=== PATIENT | female | born 1950 | race Caucasian/White ===

== ENCOUNTER 2022-05-01 13:39 | Outpatient (CLI) | payer MEDICARE, SELFPAY ==
--- NOTE | ~2022-05-01 | XR_ITS ---
EXAMINATION: XR abdomen/kub 1V DATE: 05/01/2022 14:32 INDICATION: Right renal stone TECHNIQUE: A supine view of the abdomen on 2 radiographs was obtained. COMPARISON: None. FINDINGS: Moderate to large amount of stool scattered throughout the colon which along with some additional sca ttered bowel gas somewhat limits assessment for small renal stones. 8 x 4 mm stone as well as a 1-2 m m stone projecting over the lower pole of the right kidney. No other evident urolithiasis. There are couple oblong densities projecting over the left hemipelvis likely representing ingested material wit hin the fecal stream. Cholecystectomy clips in right upper quadrant. Suture line in the epigastric re gion. At L4-L5 anterior spinal fusion with plate and screw fixation. Bipolar type left hip hemiarthro plasty. IMPRESSION: 1. A couple likely renal stones projecting over the lower pole of the right kidney measuring 8 x 4 mm and 1-2 mm Reviewed, dictated and finalized at location A. IMPRESSION: 1. A couple likely renal stones projecting over the lower pole of the right kid bell measuring 8 x 4 mm and 1-2 mm
== END 2022-05-01 13:40 | disposition home or self-care (01) ==
PROVIDERS: PCP Internal Medicine; Visit Provider Urology
DX: N20.0 Calculus of kidney (principal)
CPT/HCPCS: 74018

== ENCOUNTER 2022-07-27 12:11 | Outpatient (CLI) | payer MEDICARE, SELFPAY ==
--- NOTE | 2022-07-27 12:40 | ECG_ITS ---
Measurements Intervals [place] Rate: 57 P: 29 SD: 165 QRS: -7 QRSD: 76 T: 24 QT: 403 QTc: 393 Interpretive Statements SINUS BRADYCARDIA BASELINE ARTIFACT VOLTAGE CRITERIA FOR LVH ABNORMAL ECG NO PREVIOUS ECG AVAILABLE FOR COMPARISON Electronically Signed On 07-27-2022 14:48:23 DIRECTOR OF MANAGED CARE by Jb Cárdenas M.D.
[2022-07-27 14:02] LABS: Anion Gap 6 mmol/L (8-16); Blood Urea Nitrogen 25 mg/dL (7-17); Calcium 8.6 mg/dL (8.4-10.2); Carbon Dioxide 24 mmol/L (22-30); Chloride 111 mmol/L (98-107); Estimated Glomerular Filt Rate > 60; Glucose 81 mg/dL (65-110); Potassium 4.9 mmol/L (3.4-5.0); Sodium 141 mmol/L (137-145)
[2022-07-27 14:14] LABS: Prothrombin Time 12.6 Seconds (11.1-14.7)
== END 2022-07-27 12:12 | disposition home or self-care (01) ==
LOC: ANHSURGERY 12:15
PROVIDERS: Anesthesiology; PCP Internal Medicine; Visit Provider Urology
DX: N20.0 Calculus of kidney (principal); E78.00 Pure hypercholesterolemia, unspecified; Z51.81 Encounter for therapeutic drug level monitoring
CPT/HCPCS: 36415; 80048; 85610; 85730; 87086; 87147; 87181; 87186; 93005

== ENCOUNTER 2022-10-20 13:26 | Outpatient (CLI) | payer MEDICARE, SELFPAY ==
--- NOTE | ~2022-10-20 | XR_ITS ---
XR abdomen/kub 1V 10/20/2022 13:45 Indication: Right renal stone Procedure: KUB Comparison: 05/01/2022 Findings: There are multiple radiodensities throughout the abdomen, likely bowel content. There are s mall calcifications overlying the lower pole of the right kidney, most likely renal stones. Lung base s unremarkable. Nonobstructive bowel gas pattern. Moderate colonic fecal loading. There is a left fem oral bipolar hemiarthroplasty. There are surgical fusion changes at L4-5. Impression: 1: Right nephrolithiasis. Reviewed, dictated and finalized at location L. TH SERVICES ADMINISTRATOR Impression: 1: Right nephrolithiasis.
== END 2022-10-20 13:27 | disposition home or self-care (01) ==
PROVIDERS: PCP Internal Medicine; Visit Provider Nurse Practitioner Adult Health
DX: N20.0 Calculus of kidney (principal)
CPT/HCPCS: 74018

== ENCOUNTER 2023-10-19 14:20 | Outpatient (CLI) | payer MEDICARE, SELFPAY ==
--- NOTE | ~2023-10-19 | XR_ITS ---
EXAM: XR abdomen/kub 1V DATE: 10/19/2023 14:42 HISTORY: RT RENAL STONE . COMPARISON: 10/20/2022. FINDINGS: Clear lung bases. Normal bowel gas pattern. No organomegaly. Cluster of calcifications pro jecting over the right lower renal pole, largest measuring up to 6 mm. Vascular calcifications. Diver ticular calcification. Osteopenia. Lumbar fusion hardware. Left femoral bipolar hemiarthroplasty. IMPRESSION: Stable right nephrolithiasis. Reviewed, dictated and finalized at location K. IAL EDUCATION INCLUSION TEACHER
== END 2023-10-19 14:21 | disposition home or self-care (01) ==
PROVIDERS: PCP Internal Medicine; Visit Provider Urology
DX: N20.0 Calculus of kidney (principal)
CPT/HCPCS: 74018

== ENCOUNTER 2024-07-05 00:12 | Day surgery (SDC) | payer MEDICARE, SELFPAY ==
[2024-06-22 14:16] VITALS: BMI 28.3
[2024-07-05 10:50] VITALS: BP 137/83; PULSE 98; RESP 18; TEMP 36.8; O2SAT 98; BMI 27.9
[2024-07-05] MEDS: LACTATED RINGERS 1,000 ML 150 ML IV CONT (11:15)
--- NOTE | 2024-07-05 12:12 | PM.IMHP ---
H&P: HPI History of Present Illness Date/Time: 07/05/24 12:12 Chief Complaint: History of colon polyps Narrative: The patient has a history of colonic polyps, the last colonoscopy was 5 years ago Review of Systems Review of Systems: All systems reviewed & are unremarkable except as noted in HPI and below PMFSH Social History Social History Smoking status: Never smoker Alcohol intake: current Drinks per week: 2 Alcohol use details: glass of wine occas Substance use: never Substance use type: does not use Living arrangements: with family Additional living arrangements comments: HUSB Spiritual care concerns: No Meds Home Medications and Allergies Home Medications Medication Instructions Recorded Confirmed Type atorvastatin 20 mg tablet 20 mg PO DAILY 05/14/22 07/05/24 History calcium 600 mg (as carbonate)-vit 1 tablet PO DAILY 05/14/22 07/05/24 History D3 20 mcg (800 unit) chewable tablet (Caltrate plus D) cholecalciferol (vitamin D3) 125 5,000 unit PO DAILY 05/14/22 07/05/24 History mcg (5,000 unit) tablet (Vitamin D3) cyanocobalamin (vitamin B-12) 1,000 mcg IM MONTHLY 05/14/22 07/05/24 History 1,000 mcg/mL injection solution furosemide 20 mg tablet 20 mg PO DAILY PRN Edema 05/14/22 07/05/24 History gabapentin 600 mg tablet 600 mg PO HS 05/14/22 07/05/24 History glucosamine-chondroitin 250 mg-200 1 tablet PO BID 05/14/22 07/05/24 History mg tablet (Osteo Bi-Flex) hydrocodone 10 mg-acetaminophen 1 tablet PO QID 05/14/22 07/05/24 History 325 mg tablet melatonin 10 mg tablet 10 mg PO HS 05/14/22 07/05/24 History meloxicam 7.5 mg tablet 7.5 mg PO DAILY 05/14/22 07/05/24 History omeprazole 20 mg capsule,delayed 20 mg PO HS 05/14/22 07/05/24 History release biotin 10,000 mcg capsule 10,000 mcg PO DAILY 07/20/22 07/05/24 History magnesium 250 mg tablet 250 mg PO DAILY 06/22/24 07/05/24 History Allergies Allergy/AdvReac Type Severity Reaction Status Date / Time Sulfa (Sulfonamide Allergy Rash Verified 06/22/24 14:12 Antibiotics) adhesive tape AdvReac Redness of Verified 06/22/24 14:12 Skin Vital Signs Vital Signs - 24 hr 07/05/24 10:50 Temperature 98.2 F Pulse Rate 98 Respiratory Rate 18 Blood Pressure 137/83 Pulse Oximetry 98 Oxygen Delivery Room Air Exam Const: General: cooperative and healthy appearing Resp: Effort & Inspection: normal respiratory effort and able to speak in complete sentences Auscultation: clear to auscultation bilaterally Cardio: Rate: regular rate Rhythm: regular rhythm GI: Inspection: normal to inspection GI Palp: No No hepatosplenomegaly present Auscultation: normal bowel sounds Rectal Exam: deferred Skin: General skin exam: normal color Psych: Appearance: grossly normal Mental Status: mental status grossly normal Assessment and Plan Assessment and plan (1) History of colonic polyps: Code(s): Z86.0100 - Personal history of colon polyps, unspecified Status: Acute Assessment and Plan: The patient is deemed a good candidate for the procedure. Consent signed. Will proceed.
--- NOTE | 2024-07-05 12:14 | P.PNAN_ITS ---
Anes - Initial Pre Proc Eval Procedure: Operation Date: 07/05/24 11:30 Proposed Procedures p Colonoscopy - Mariano Nuñez MD Date/Time: 07/05/24 12:14 Surgeon: Mariano Nuñez MD Pre Op Diagnosis: hemorrhoidal skin tags Patient Data Age: 73 Gender: F Height: 1.63 m Weight: 73.9 kg Last Vital Signs Temp 36.8 C 07/05/24 10:50 Pulse 98 07/05/24 10:50 Resp 18 07/05/24 10:50 BP 137/83 07/05/24 10:50 Pulse Ox 98 07/05/24 10:50 O2 Del Method Room Air 07/05/24 10:50 Allergies Allergy/AdvReac Type Severity Reaction Status Date / Time Sulfa (Sulfonamide Allergy Rash Verified 06/22/24 14:12 Antibiotics) adhesive tape AdvReac Redness of Verified 06/22/24 14:12 Skin Home Medications Medication Instructions Recorded Confirmed Type atorvastatin 20 mg tablet 20 mg PO DAILY 05/14/22 07/05/24 History calcium 600 mg (as carbonate)-vit 1 tablet PO DAILY 05/14/22 07/05/24 History D3 20 mcg (800 unit) chewable tablet (Caltrate plus D) cholecalciferol (vitamin D3) 125 5,000 unit PO DAILY 05/14/22 07/05/24 History mcg (5,000 unit) tablet (Vitamin D3) cyanocobalamin (vitamin B-12) 1,000 mcg IM MONTHLY 05/14/22 07/05/24 History 1,000 mcg/mL injection solution furosemide 20 mg tablet 20 mg PO DAILY PRN Edema 05/14/22 07/05/24 History gabapentin 600 mg tablet 600 mg PO HS 05/14/22 07/05/24 History glucosamine-chondroitin 250 mg-200 1 tablet PO BID 05/14/22 07/05/24 History mg tablet (Osteo Bi-Flex) hydrocodone 10 mg-acetaminophen 1 tablet PO QID 05/14/22 07/05/24 History 325 mg tablet melatonin 10 mg tablet 10 mg PO HS 05/14/22 07/05/24 History meloxicam 7.5 mg tablet 7.5 mg PO DAILY 05/14/22 07/05/24 History omeprazole 20 mg capsule,delayed 20 mg PO HS 05/14/22 07/05/24 History release biotin 10,000 mcg capsule 10,000 mcg PO DAILY 07/20/22 07/05/24 History magnesium 250 mg tablet 250 mg PO DAILY 06/22/24 07/05/24 History Patient hx anesthesia problems: none Family hx anesthesia problems: none Results Review: All pre-operative results and documents have been reviewed as part of the pre- operative evaluation. [facility] Social History Social History Smoking status: Never smoker Alcohol intake: current Drinks per week: 2 Alcohol use details: glass of wine occas Substance use: never Substance use type: does not use Living arrangements: with family Additional living arrangements comments: HUSB Spiritual care concerns: No Anes - Eval Final PreProcedure Day of Procedure 07/05/24 12:14 Patient weight: overweight Heart: regular rate and rhythm Lungs: clear to auscultation Airway: Mallampati scale class III Neurological: alert and oriented Last oral intake: >/= 8 hours ASA classification: II Emergent: no Anesthetic plan: proceed Anesthesia type and monitoring: general GIVS and standard monitoring Results Review: All pre-operative results and documents have been reviewed as part of the pre- operative evaluation. Informed Consent: The patient's anesthetic plan and its attendant risks and benefits were discussed with the patient/family/POA. Questions were solicited and answers provided to the satisfaction of the patient/family/POA.
[2024-07-05 12:40] VITALS: BP 110/69; PULSE 87; RESP 20; O2SAT 99
[2024-07-05 12:50] VITALS: BP 131/88; PULSE 86; RESP 24; O2SAT 98
[2024-07-05 13:00] VITALS: BP 148/86; PULSE 88; RESP 22; O2SAT 96
== END 2024-07-05 13:10 | disposition home or self-care (01) ==
PROVIDERS: PCP Internal Medicine; Visit Provider Internal Medicine Gastroenterology
PROC: 0DJD8ZZ Inspection of Lower Intestinal Tract, Via Natural or Artificial Opening Endoscopic (ICD-10-PCS; CPT 45378; principal; 2024-07-05 11:30)
DX: Z12.11 Encounter for screening for malignant neoplasm of colon (principal); Z79.891 Long term (current) use of opiate analgesic; Z86.0100 Personal history of colon polyps, unspecified
CPT/HCPCS: G0105; J2003; J2704; J7120

== ENCOUNTER 2024-10-26 13:19 | Outpatient (CLI) | payer MEDICARE, SELFPAY ==
--- NOTE | ~2024-10-26 | XR_ITS ---
XR abdomen/kub 1V Ordering provider: Adolfo Oropeza MD History: . rt renal stone . Comparison: October 19, 2023 FINDINGS: BOWEL: Nonobstructive bowel gas pattern. ORGANOMEGALY: None. SIGNIFICANT PATHOLOGIC CALCIFICATIONS: No definite stones seen. The kidneys are of not well demonstra carlos due to fecal material shadow is overlapping the kidneys. OTHER: No free air is seen under the diaphragm. Postoperative changes in the spine. Left hip arthropl asty. Right hip severe osteoarthritic changes. IMPRESSION: NO ACUTE ABDOMINAL FINDINGS. No definite kidney stones seen. If still suspicious. Noncontrast CT is advised. Reviewed, dictated and finalized at location A. TESTER
--- OUTSIDE RECORDS SUMMARY | 2024-10-26 14:37 | XMS_ITS | CONTINUITY OF CARE DOCUMENT ---
Author Name mika, mika Address Unknown Organization [facility] Address [address] [place] [address] Phone [phone] Care Team Providers Care Nightclub Manager Name Role Phone Marita CALVILLO, Arthur Martin Unavailable MANDEEP CALVILLO, MORGAN Unavailable MANDEEP CALVILLO, MORGAN Unavailable [phone] PROBLEMS Condition Status Date Provider Notes Coronary atherosclerosis active Olya miles MD Anemia active Olya Lopez MD Chest pain-type to be determined active Olya Lopez MD GERD active Olya Lopez MD Osteoarthritis active Olya Lopez MD HTN essential active Olya Lopez MD Diabetes, Type 2 active Arthur Kirkland MD Hypertension active rAthur Kirkland MD Abnormal cardiovascular stress test active Arthur Kirkland MD Back pain, lumbosacral active Arthur theodore MD Imported from [facility]: [facility] (01-Apr-2022 at 04:13:14 PM) ENCOUNTERS Date Type Provider Location Encounter Diag nosis - In-person encounter Office Visit Arthur Kirkland MD [facility] Diabetes, Type 2HypertensionAbnormal cardiovascular stress testBack pain, lumbosacral - In-person encounter Office Visit Olya Lopez MD [facility] VITAL SIGNS Date Observation Value Provider Body Mass Index (Ratio) 27.46 kg/m2 Herbert Ahmedzai blood pressure, diastolic 101 mm[Hg] Caitlyn nkLogic blood pressure, systolic 131 mm[Hg] Alyssa kLogic blood pressure, diastolic 101 mm[Hg] Sa ra Guerrero blood pressure, systolic 131 mm[Hg] Johnna a Guerrero respiratory rate E&M 17 /min Keke Si ms oxygen saturation, oximetry 97 % Keke Guerrero pulse rate 92 /min Keke Guerrero weight E&M 160 [lb_av] Keke Guerrero blood pressure, cuff size regular Sa ra Guerrero height E&M 64 [in_i] Keke Guerrero Body Mass Index (Ratio) 26.77 kg/m2 Kehinde Lopez MD blood pressure, diastolic 74 mm[Hg] To nsha Chapin blood pressure, systolic 95 mm[Hg] Ton sha Chapin oxygen saturation, oximetry 91 % Tonsha Chapin respiratory rate E&M 16 /min Tonsha Chapin pulse rate 81 /min Tonsha Chapin weight E&M 156 [lb_av] Tonsha Chapin height E&M 64 [in_i] Tonsha Chapin blood pressure, resting Yes Tons martinez Chapin ALLERGIES Allergy Name Onset Date Reaction Criticality Status TAPE Low Criticality active SULFA Low Criticality active HISTORY OF MEDICATION USE Medication Status Instructions Dates Provider Indications Com ments Caltrate 600 plus D 600 mg-20 mcg (800 unit) tablet,chewable active Martha Gruenenfelder Osteo Bi-Flex 250-200 mg tablet active Take 2 tablet by mouth once a day Martha Gruenenfelder Vitamin C 250 mg tablet active Take 2 tablet by mouth once a day Martha Gruenenfelder vitamin E acetate unspecified unspecified active Martha Gruenenfelder vitamin A unspecified unspecified active Martha Gruenenfelder Vitamin D3 125 mcg (5,000 unit) tablet active Take 1 tablet by mouth once a day Martha Faustino potassium aminobenzoate unspecified unspecified active Martha Rodriguezpatrick Slow-Mag unspecified unspecified active Martha Rodriguezpatrick Glucosamine Chondroitin unspecified unspecified active Martha Rodriguezpatrick tumeric active Martha Faustino melatonin 10 mg tablet active Martha Rodriguezpatrick omeprazole 20 mg capsule,delayed release(DR/EC) active Martha Rodriguezpatrick multivitamin completed 1 by mouth - Martha Faustino Imported from [facility] (01-Apr-20 at 04:13:14 PM) carisoprodol 350 mg tablet completed 350 mg by mouth - Martha Faustino Imported from [facility]: [facility] (01-Apr-20 at 04:13:14 PM) HYDROcodone-acet aminophen completed 1 by mouth - Martha Faustino Imported from [employer] [facility] (01-Apr-20 at 04:13:14 PM) meloxicam 7.5 mg tablet active Take 1 tablet by mouth once a day Martha Harmon HYDROCODONE-ACET AMINOPHEN 10-325 MG/15ML ORAL SOLUTION completed 1 tablet every four hours - Martha Harmon OXYCODONE HCL 5 MG ORAL TABLET completed one tab every 4 hours - Olya Lopez MD FE TABS 325 (65 FE) MG ORAL TABLET DELAYED RELEASE completed one tab daily - Gladys Chapin lisinopril 5 mg tablet active 1 tablet once a day Olya Lopez MD gabapentin 600 mg tablet active 1 tablet every night Olya Lopez MD atorvastatin 20 mg tablet active 1 tablet once a day Olya Lopez MD ELIQUIS 2.5 MG ORAL TABLET completed one tab twice daily - Gladys Chapin SOCIAL HISTORY Date Observation Value Provider smoking status Never smoker Arthur theodore MD social history E&M S moking History: Ashutosh fermin has never smoked. Arthur Kirkland MD social history reviewed E&M revi ewed - no changes required Arthur Kirkland MD social history E&M S moking History: Ashutosh fermin has never smoked. Olya Lopez MD social history reviewed E&M revi ewed - no changes required Olya Lopez MD smoking status Never smoker Gladys Chapin number of grandchildren Olya Lopez MD T johny Lopez MD FUNCTIONAL STATUS Date Observation Value Provider HRA, CV Assess/Plan, Angina (inactive) Management Plan continue current therapy Arthur Kirkland MD HRA, CV Assess/Plan, Angina (inactive) Management Plan continue current therapy Olya Lopez MD FAMILY HISTORY Family Member Condition Father Family History Unkno wn Mother Family History Unkno wn INSURANCE PROVIDERS Payer name Policy type / Coverage type [place] red libertarian ID [place] MED[place] Medicare [id number] [facility] [employer] Commercial insurance [employer] [id number] ADVANCE DIRECTIVES Name Date DISCUSSED - NO DECISION MADE TREATMENT PLAN Date Name Performer [id number],C,Walks with a cane. Arthur Kirkland MD [id number],C,N on invasive workup Stress test done in 2019 Jabier ramírez 1 . Normal myocardial perfusion imaging after vasodilator stress with Regadenoson. 2 . Normal left ventricular systolic function with a calculated ejection fraction of 68%. 3 . No obvious significant scintigraphic evidence of myocardial ischemia or scar. . ...................................................... ............Olya Lopez MD October 26, 2019 6:54 AM Arthur Kirkland MD [id number],C,C AC 481. Primarily in LAD LCX. Based on CAC done at [facility]. Reccomend getting nuclear stress to evaluate for ischemia since she had episodes of CP [id number]. Arthur Kirkland MD [id number],S,C heck echo and nuclear stress. Walks with cane so needs lexascan stress Arthur Kirkland MD Cardiology:Walks with a cane. Sa jeremias Kirkland MD Cardiology:Non invas tera workup Stress test done in 2019 S desiree 1 . Normal myocardial perfusion imaging after vasodilator stress with Regadenoson. 2 . Normal left ventricular systolic function with a calculated ejection fraction of 68%. 3 . No obvious significant scintigraphic evidence of myocardial ischemia or scar. . ...................................................... ............Olya Lopez MD October 26, 2019 6:54 AM Arthur Kirkland MD Cardiology:CAC 481. Primarily in LAD LCX. Based on CAC done at [facility]. Reccomend getting nuclear stress to evaluate for ischemia since she had episodes of CP [id number]. Arthur Kirkland MD Cardiology:Check ech o and nuclear stress. Walks with cane so needs lexascan stress Arthur Kirkland MD Cardiology Olya Lopez MD Cardiology Olya Lopez MD Cardiology Olya Lopez MD Cardiology Olya Lopez MD Date Name Complete Echo Stress Regadenoson Complete Echo Stress Regadenoson HISTORY OF PROCEDURES Procedure Date Procedure Name Provider Procedure Notes S tatus EKG Arthur Kirkland MD compl eted Regadenoson, 4 units Olya Lopez MD completed Cardiolite, 2 units Olya Lopez MD completed SPECT Images Olya Lopez MD complet ed Stress EKG Olya Lopez MD completed EKG Olya Lopez MD completed
--- OUTSIDE RECORDS SUMMARY | 2024-10-26 14:37 | XMS_ITS | Clinical Summary ---
Author Organization [facility] Address [address] [place] [address] Care Team Providers Care Handle Sewer Name Role Phone Rodolfo Goodson MD Primary Care Provider [phone] Olya Lopez MD Unavailable [phone] Adolfo Oropeza MD Unavailable [phone] Allergies Active Allergy Reactions Criticality Noted Date Comments Sulfa Antibiotics Hives,Rash Low 09/26/2019 Tape Rash High 01/05/2017 Skin blisters after surgical tape stays on a while, does okay with paper tape Medications Multiple Vitamins-Minera ls (CENTRUM SILVER 50+WOMEN OR) Take 1 tablet by mouth daily. chewable 04/09/2017 Active hydrocodone-liss taminophen 10-325 MG tablet Take 1 tablet by mouth 4 (four) times daily as needed for Pain. For chronic back pain, lumbar fusion in past. Active cyanocobalamin 1000 MCG/ML injection Patient's daughter injects her on first day of each month 05/24/2020 Active biotin 300 MCG Tab Take 1 tablet (300 mcg total) by mouth daily. Active Melatonin 10 MG Tab Take 1 tablet (10 mg total) by mouth nightly as needed. Active Doxylamine Succinate, Sleep, (UNISOM OR) Take 1 tablet by mouth nightly. Active ibuprofen 200 MG tablet Take 2 tablets (400 mg total) by mouth every 6 (six) hours as needed for Pain. Active gabapentin 600 MG tablet Take 1 tablet (600 mg total) by mouth daily. Active alendronate (FOSAMAX) 70 MG tablet 05/15/2022 Active atorvastatin (LIPITOR) 20 MG tablet 06/27/2022 Active Docusate Sodium (DSS) 100 MG Cap Doc-Q-Lace 100 mg capsule TK ONE C PO BID Active meloxicam (MOBIC) 7.5 MG tablet Take 1 tablet (7.5 mg total) by mouth daily. 30 tablet 3 03/20/2024 Active Active Problems Problem Noted Date Diagnosed Date Sacroiliitis 06/09/2023 Overview (06/09/2023): Added automatically from request for surgery [id number] Spinal stenosis of lumbar re gion, unspecified whether neurogenic claudication present 02/09/2023 Overview (02/09/2023): Added automatically from request for surgery [id number] Lumbar radiculopathy 09/26/2019 Family History Medical History Relation Comments Alcohol Abuse Father Breast Cancer Father Cancer Father Heart Attack Father Heart Disease Father Breast Cancer Mother Relation Status Comments Daughter 1 Alive Daughter 2 Alive Father (Age 89) with hear t attack Mother (Age 79) hormonal breas t cancer Social History Tobacco Use Types Packs/Day Years Used Date Smoking Tobacco: Never Smokeless Tobacco: Never Tobacco Cessation:Counseling Given: Not Answered Alcohol Use Standard Drinks/Week Comments Never 0 (1 standard drink = 0.6 oz pur e alcohol) AUDIT-C Answer Date Recorded Frequency of Alcohol Consumption Never 09/26/2019 Average Number of Drinks Not on file 020 Frequency of Binge Drinking Not on file 11/2019 Comments No Sex and Gender Information Value Date Recorded Sex Assigned at Not on file Legal Sex Female 12:40 PM [employer] Gender Identity Not on file Sexual Orientation Not on file 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 Not on file Not on file Not on file Last Filed Vital Signs Vital Sign Reading Time Taken Comments Blood Pressure 137/77 06/22/2024 8:41 AM CDT Pulse 59 06/22/2024 8:41 AM CDT Temperature 36.1 C (97 F) 06/22/2024 7:44 AM CDT Respiratory Rate 18 06/22/2024 8:41 AM CDT Oxygen Saturation 98% 06/22/2024 8:41 AM CDT Inhaled Oxygen Concentration - - Weight 75.8 kg (167 lb) 06/22/2024 7:44 AM CDT Height 165.1 cm (5' 5 ) 06/22/2024 7:44 AM CDT Body Mass Index 27.79 06/22/2024 7:44 AM CDT Plan of Treatment Health Maintenance Due Date Last Done Comments Colorectal Cancer Screening Colonoscopy (10 Years) 1948 Hepatitis C 1966 Zoster Vaccines (1 of 2) 1998 11/09/2018 Annual Medicare Wellness Visit 2013 Dexa Scan (General) 2013 DTaP, Tdap and Td Vaccines (1 - Tdap) 01/19/2015 01/18/2015 RSV Immunization or 60+ Years (1 - 1-dose 75+ series) 12/12/2023 COVID-19 Vaccine ( season) 2024 07/21/2021, 07/10/2021, 10/21/2020, Additional history exists Influenza Adult Completed 05/29/2024, 05/23, 06/16/2016, Additional history exists Pneumococcal Vaccine: 65+ Years Completed 06/01/2024, 04/05/2019, 09/26/2014, Additional history exists Meningococcal B Vaccine Aged Out No l onger eligible based on patient's age to complete this topic Meningococcal Vaccine Aged Out No angel chalino eligible based on patient's age to complete this topic RSV Immunizations Under 20 Months Aged Out No longer eligible based on patient's age to complete this topic Insurance MEDICARE [facility] [employer] Care Teams Handle Sewer Relationship Specialty Start Date End Date Rodolfo Goodson MD [address] [phone] PCP - General INTERNAL MEDICINE 09/26/19 [place] [address] [place] [address] CARDIOVASCULAR DISEASE 03/20/21 Adolfo Oropeza MD [address] [place] [address] UROLOGY 03/21/21
--- OUTSIDE RECORDS SUMMARY | 2024-10-26 14:38 | XMS_ITS | Patient Health Record ---
Author Organization [facility] Address [address] [place] [address] Care Team Providers Care Social Service Liaison Name Role Phone Rodolfo Goodson md Primary Care Provider Linda [facility], ANTONIO Unavailable [phone] Gerardo Reynolds Unavailable Unavailable ALLERGIES Allergen (clinical drug ingredient) Drug/Non Drug Allergy documented on EMR Reaction Allergy Type Onset Date Status Adhesive Unknown Allergy Active Substance with sulfonamide structure and antibacterial mechanism of action (substance) Sulfa Antibiotics rash Drug Allergy Active REASON FOR REFERRAL No Information MEDICATIONS Medication SIG (Take, Route, Frequency, Duration) Notes Start Date End Date Status Centrum Active Fosamax 20mg PRN Active Meloxicam 7.5 MG 1 tablet Orally Once a day Active Atorvastatin Calcium 20 MG 1 tablet Oral ly Once a day Active Gabapentin 600 MG 1 tablet Orally Once a day Active Biotin Active Vitamin B12 Active Slow Magnesium/Calcium Active HYDROcodone-Acetaminophen 10-325 MG 1 tablet as needed Orally every 6 hrs Active Melatonin Active AZO Cranberry Active Stool Softener 250 MG 1 capsule as neede d Orally Once a day Active Omeprazole 20 MG 1 capsule 30 minutes before morning meal Orally Once a day Active PLAN OF TREATMENT Pending Test Test Name Order Date Endoscopic Retrograde Cholangiopancreato graphy (ERCP) 04/05/2023 Insurance Providers Payer Name Payer Address Payer Phone Subscriber Number Group Number Insured Name Patient Relationship to Insured Coverage Start Date Coverage End Date [place] [address] [place], [place] [id number] Carolynn Minor Self - patient is the insured [facility] Life Insurance Medicare Supplement [address] [address] [place], [place] [id number] Carolynn Minor Self - patient is the insured MEDICAL (GENERAL) HISTORY Medical History History ICD Code type II diabetes hyperlipidemia pernicious anemia hypertension peripheral vascular disease gastroesophageal reflux disease (GERD) osteoarthritis spinal stenosis osteoporosis Surgical History Surgery Date(Month/Year) cholecystectomy patrick-en-y gastric bypass hysterectomy lumbar surgery ERCP- 04/28/26 Aliperti left knee arthroscopy
--- OUTSIDE RECORDS SUMMARY | 2024-10-26 14:38 | XMS_ITS | Patient Health Summary ---
Author Organization [facility] Address [address] [place] [address] Care Team Providers Care Environmental Health Inspector Name Role Phone Rodolfo Goodson MD Primary Care Provider [phone] Note from [facility],non-owned Affiliates and Associated Physician Practices is amultiple site organization consisting of ambulatory clinics and hospital sitesin [place], [place], [place]. This disclosure is being madepursuant to the Care Everywhere program and may not contain all information available regarding this patient. Last updated 18.[facility] Allergies * Adhesive Sensitivity(Rash) -Medium Criticality * Sulfa Drugs(Rash) -Medium Criticality Medications * Be aware that medications may not be up to date on this document. Alwaysverify current medications with the patient. * gabapentin (Neurontin) 600 MG tablet Take 600 mg by mouth at bedtime * HYDROcodone-acetaminophen ([place]) 10-325 MG tablet(Started 05/08/2022) Take 1 tablet by mouth every 6 hours as needed * lisinopril (Prinivil; Zestril) 5 MG tablet Take 5 mg by mouth once daily as needed * atorvastatin (Lipitor) 20 MG tablet Take 20 mg by mouth once daily * alendronate (Fosamax) 70 MG tablet Take 70 mg by mouth every 7 days before meal * Ascorbic Acid 100 MG Take 100 mg by mouth every 24 hours * biotin 300 MCG tablet Take 1 tablet by mouth once daily * Cholecalciferol 25 MCG (1000 UT) Take 1 tablet by mouth once daily * cyanocobalamin (Vitamin B-12) injection cyanocobalamin (vit B-12) 1,000 mcg/mL injection solution INJECT 1ML INTO THE MUSCLE ONCE A MONTH * Docusate Sodium (DSS) 100 MG Doc-Q-Lace 100 mg capsule TK ONE C PO BID * furosemide (Lasix) 20 MG tablet Take 20 mg by mouth once daily as needed * Magnesium Oxide 400 (240 Mg) MG Take 400 mg by mouth at bedtime * melatonin 1 MG tablet Take 1 mg by mouth at bedtime * Multiple Vitamin (Daily Vites) TABS Take 1 tablet by mouth once daily * Potassium Gluconate 550 MG tablet Take 99 mg by mouth once daily * vitamin A 3 MG (93451 UT) capsule Take 2.4 mg by mouth once daily * vitamin E (Tocopheryl) 200 UNIT capsule every 24 hours * omeprazole (PriLOSEC) 20 MG capsule Take 20 mg by mouth daily before breakfast Active Problems Problem Noted Date Diagnosed Date Arthritis of left knee 06/02/2022 Social History Tobacco Use Types Packs/Day Years Used Date Smoking Tobacco: Never Tobacco Cessation:Counseling Given: No Alcohol Use Standard Drinks/Week Comments Never 0 (1 standard drink = 0.6 oz pur e alcohol) AUDIT-C Answer Date Recorded Q1: How often do you have a drink containing alc ohol? Monthly or less 06/02/2022 Q2: How many drinks containi ng alcohol do you have on a typical day when you are drinking? 1 or 2 06/02/2022 Q3: How often do you have si x or more drinks on one occasion? Never 06/02/2022 Hunger Vital Sign Answer Date Recorded Within the past 12 months, y ou worried that your food would run out before you got the money to buy more. Never true 06/02/20 Within the past 12 months, t he food you bought just didn't last and you didn't have money to get more. Never true 06/02/2022 Sex and Gender Information Value Date Recorded Sex Assigned at Not on file Gender Identity Not on file Sexual Orientation Not on file Last Filed Vital Signs Vital Sign Reading Time Taken Comments Blood Pressure 153/83 06/03/2022 5:24 AM CDT Pulse 83 06/03/2022 5:24 AM CDT Temperature 36.6 C (97.8 F) 06/03/2022 5:24 AM CDT Respiratory Rate 16 06/03/2022 5:24 AM CDT Oxygen Saturation 100% 06/03/2022 5:24 AM CDT Inhaled Oxygen Concentration - - Weight 72.6 kg (160 lb) 06/02/2022 8:01 AM CDT Height 162.6 cm (5' 4 ) 06/02/2022 8:01 AM CDT Body Mass Index 27.46 06/02/2022 8:01 AM CDT Medical Devices Implanted Type Area Supervisor Cigar Processing Device Identifier Shelf Expiration Date Model / Serial / Lot Cmpnt Fem Kn Lt 4 Crcte Rtn Bead Trthln Implanted:Qty: 1 on 06/02/2022 by Neo Pepe MD at [facility] Left: Knee [employer] 05/01/2027 [id number] / / [id number] Cmpnt Ptlr S 31x9mm Tritanium Strl Lf Implanted:Qty: 1 on 06/02/2022 by Neo Pepe MD at [facility] Left: Knee [employer] 04/13/2027 [id number] / / [id number] Bsplt Tib Trthlm 4 Kn Tritanium Implanted:Qty: 1 on 06/02/2022 by Neo Pepe MD at [facility] Left: Knee [employer] 04/12/2027 [id number] / / [id number] Ins Tib 4 10mm Kn X3 Cndrl Stab Brng Implanted:Qty: 1 on 06/02/2022 by Neo Pepe MD at [facility] Left: Knee [employer] 12/25/2026 [id number] / / [id number] Procedures * CARDIAC RHYTHM STRIP ORDER(Performed 06/04/2022) * IMAGING/RADIOLOGY/XRAY RESULTS ORDER(Performed 06/04/2022) * HGB HCT PANEL(Performed 06/03/2022) Performed for Arthritis of left knee * XR KNEE LEFT 2VW OR LESS(Performed 06/02/2022) Performed for Arthritis of left knee * NC TOTAL KNEE REPLACEMENT(Performed 06/02/2022) Performed for M17.12 * PERIPHERAL BLOCK(Performed 06/02/2022) * EKG 12-LEAD(Performed 05/27/2022) Performed for Pre-op testing Results * CARDIAC RHYTHM STRIP ORDER (06/04/2022 8:29 PM CDT) Narrative 06/04/2022 8:29 PM CDT Ordered by an unspecified provider. Scanned Document CARDIAC SERVICES ORD ERABLES * IMAGING RADIOLOGY XRAY RESULTS ORDER (06/04/2022 3:41 PM CDT) Anatomical Region Laterality Modality Other Narrative 06/04/2022 3:41 PM CDT Ordered by an unspecified provider. Scanned Document IMAGING * (ABNORMAL) HGB HCT PANEL (06/03/2022 5:10 AM CDT) [facility] Hemoglobin 8.7(L) 12.0 - 15.6 gm/dL 06/03/2022 5:21 AM CDT [facility] Hematocrit 27.7(L) 35.9 - 45.5 % 06/03/2022 5:21 AM CDT [facility] Blood BLOOD SPECIMEN / Unknown Lab Venipuncture / Unknown 06/03/2022 5:10 AM CDT 06/03/2022 5:16 AM CDT Neo Pepe MD LAB - HEMATOLOGY OR DERABLES Performing Organization Address City/State/[facility] Co de Phone Number [facility] [address] [place] [address] * XR KNEE LEFT 2VW OR LESS (06/02/2022 1:57 PM CDT) Anatomical Region Laterality Modality Lower Extremity Radiographic Norah ging 06/02/2022 2:19 PM CDT Narrative 06/02/2022 2:19 PM CDT PROCEDURE(s): XR KNEE LEFT 2VW OR LESS; DATE AND TIME OF EXAM(s): 06/02/2022 1:57 PM; LOCATION: [facility] INDICATION(s): M17.12: Unilateral primary osteoarthritis, left knee COMPARISON(s): None available. FINDINGS/IMPRESSION: There is left total knee arthroplasty without evidence of hardware failure, fracture, or dislocation. Surrounding subcutaneous emphysema is suggestive of acute postsurgical changes. > Interpreting Provider: Fidel Napier MD on 06/02/2022 2:19 PM Procedure Note Fidel Napier MD - 06/02/2022 PROCEDURE(s): XR KNEE LEFT 2VW OR LESS; DATE AND TIME OF EXAM(s): 06/02/2022 1:57 PM; LOCATION: [facility] INDICATION(s): M17.12: Unilateral primary osteoarthritis, left knee COMPARISON(s): None available. FINDINGS/IMPRESSION: There is left total knee arthroplasty without evidence of hardwarefailure, fracture, or dislocation. Surrounding subcutaneous emphysema issuggestive of acute postsurgical changes. > Interpreting Provider: Fidel Napier MD on 06/02/2022 2:19 PM Neo Pepe MD DIAGNOSTIC IMAGING ORDERABLES * Peripheral Nerve Block (06/02/2022 9:35 AM CDT) Narrative Dilan Dejesus MD - 06/02/2022 9:35 AM CDT Dilan Dejesus MD 06/02/2022 9:37 AM Peripheral Nerve Block Procedure: Peripheral Nerve Block Patient Location: PACU Preprocedure Section: Indications: at surgeon's request and postop pain management. Pre-anesthetic Checklist: Patient identified, IV Checked, Site examined and clear, Risks and benefits discussed, Surgical consent verified, Monitors and equipment, Time-out performed, Informed consent obtained, Pre-op evaluation done, Questions answered/anesthesia questions answered, Allergies reviewed and Removal hand/wrist jewelry Monitors: BP, Pulse Ox and EKG. Patient Condition: sedated, meaningful contact maintained throughout procedure Patient Position: sitting Patient Sedated? Yes Sedation Type: mild Sedation Agents: fentaNYL (PF) (SUBLIMAZE) injection, 50 mcg midazolam (VERSED) injection, 2 mg Procedure Section Laterality: left Block Performed: adductor canal Prep: Chloraprep Strerile Field: gloves, mask, hat/cap and sterile ultrasound sleeve Skin localized with: lidocaine (XYLOCAINE) 1 % injection, 4 mL Needle Type: nerve stimulator and Echogenic insultaed Needle Gauge: 20 Needle Length: 90 mm Needle Depth: 3 cm Nerve Stimulator? Yes Ultrasound Guided? Yes Technique: in plane Visualization: Preliminary scan performed, Important anatomical structures identified, Needle tip visualized throughout the procedure, Target identified, No intraneural or intravascular puncture occurred, Ultrasound image in chart, Local visualized surrounding nerve on ultrasound and Hydrodissection utilized Injection was made incrementally with constant monitoring and aspirations every 5 mL's Injection Assessment: Slow fractionated injection Block Agents or Additives used? Yes Block agents used: ropivacaine (NAROPIN) 5 MG/ML (0.5%) injection, 40 mL Procedure Tolerance: tolerated well and no immediate complications Procedure Start Time: 06/02/2022 9:31 AM. Procedure End Time: 06/02/2022 9:35 AM. Procedure Total Time: 4 minutes. Staff Section Anesthesia Provider: Dilan Dejesus MD, Performed the procedure Dilan Dejesus MD GENERAL ANESTHESIA O RDERABLES * EKG 12-LEAD (05/27/2022 1:19 PM CDT) Ventricular Rate 74 BPM [facility] Atrial Rate 74 BPM [facility] P-R Interval 196 ms [facility] QRS Duration ms 72 ms [facility] Q-T Interval ms 406 ms [facility] QTC Calculation (Bezet) 450 ms [facility] Calculated P [place] 39 degrees [facility] Calculated R [place] -10 degrees [facility] Calculated T [place] 28 degrees [facility] Interpretation EKG Normal sinus rhythm with sinus arrhythmia Minimal voltage criteria for LVH, may be normal variant ( R in aVL ) Septal infarct , age undetermined Abnormal ECG No previous ECGs available Confirmed by MD ROBLEDO ANDREA ([id number]) on 05/27/2022 7:28:56 PM [facility] 05/27/2022 1:19 PM CDT 05/27/2022 7:28 PM CDT Neo Pepe MD ECG ORDERABLES [facility] Care Teams Environmental Health Inspector Relationship Specialty Start Date End Date Rodolfo Goodson MD [address] [facility] [place] [address] PCP - General Internal Medicine 05/27/22
--- OUTSIDE RECORDS SUMMARY | 2024-10-26 14:38 | XMS_ITS | Continuity of Care Document ---
Author Organization [facility] Address [address] [place] [address] [address] [place] [address] Phone Care Team Providers Care Administrative Nursing Supervisor Name Role Phone Jeff Greenfield Unavailable Unavailable Procedures Procedure Date Office/outpatient Visit, [facility] Advance Directives Directive Yes / No Effective Date File Name No Information Encounters Encounter Description Practice Location Reason(s) For Visit Diagnoses Date Provider Providers Copied on Encounter Office/outpat ient Visit, [facility], [address] [place] [address] [address], [place], [place], [id number], tel:[phone] [facility] [place] No Information [phone]. [address] [facility] , [address], [place], [place], [facility], . tel:[phone] Referring Provider: Rogelio Wayne, [address] [facility], [place], [place], [facility]. tel:[phone] Family History Family Member Type Diagnosis Age At Onset No Information Payers Payer name Insurance type Covered republican ID Authoriza tion(s) No Information Social History Type Description Quantity Date Captured Comments Sex Female Smoking Status No Information Chief Complaint And Reason For Visit No Information Reason For Referral Reason For Referral No Information History Of Present Illness Encounter Date Complaint History Of Prese nt Illness No Information Functional Status Date Functional Assessmen t No Information Instructions Date Instruction Additional Infor mation No Information Assessments Type Assessment Date No Information Patient Care Teams Name Effective Dates (start - stop) Status Members No Information
--- OUTSIDE RECORDS SUMMARY | 2024-10-26 14:38 | XMS_ITS | Clinical Summary ---
Author Organization [facility] Address [address] [place] [address] Care Team Providers Care Master Control Supervisor Name Role Phone Unavailable Primary Care Provider Unavailabl e Social History Tobacco Use Types Packs/Day Years Used Date Smoking Tobacco: Never Alcohol Use Standard Drinks/Week Comments No 0 (1 standard drink = 0.6 oz pur e alcohol) Comments Unknown Sex and Gender Information Value Date Recorded Sex Assigned at Not on file Legal Sex Female 2:52 PM EDT Gender Identity Not on file Sexual Orientation Not on file Last Filed Vital Signs Vital Sign Reading Time Taken Comments Blood Pressure 110/58 05/14/2020 12:00 PM CDT Pulse 74 05/14/2020 12:00 PM CDT Temperature 36.3 C (97.3 F) 05/14/2020 12:00 PM CDT Respiratory Rate 18 05/14/2020 12:00 PM CDT Oxygen Saturation 97% 05/14/2020 12:00 PM CDT Inhaled Oxygen Concentration - - Weight 64.9 kg (143 lb) 05/14/2020 12:00 PM CDT Height 162.6 cm (5' 4 ) 05/14/2020 12:00 PM CDT Body Mass Index 24.55 05/14/2020 12:00 PM CDT Plan of Treatment Health Maintenance Due Date Last Done Comments Breast Cancer Screening 1950 Pneumococcal Vaccine: 65+ Ye ars (1 of 2 - PCV) 1954 Colorectal Cancer Screening: Annual FOBT 1997 Colorectal Cancer Screening: Colonoscopy 1997 Colorectal Cancer Screening: Sigmoidoscopy 1997 Influenza Vaccine (#1) 2024 Hepatitis B Vaccine Aged Out No longe r eligible based on patient's age to complete this topic
--- OUTSIDE RECORDS SUMMARY | 2024-10-26 14:38 | XMS_ITS ---
Author Organization [facility] Address [address] [place] [address] Care Team Providers Care Interior Decorator Paperhanging Name Role Phone Rodolfo Goodson md Primary Care Provider Linda MEDINA ACCOUNTING ADMINISTRATIVE ASSISTANT, ALLYSSA Unavailable Gerardo Reynolds Unavailable Unavailable ALLERGIES Allergen (clinical drug ingredient) Drug/Non Drug Allergy documented on EMR Reaction Allergy Type Onset Date Status Adhesive Unknown Allergy Active Substance with sulfonamide structure and antibacterial mechanism of action (substance) Sulfa Antibiotics rash Drug Allergy Active REASON FOR VISIT GTube Downsize MEDICATIONS Medication SIG (Take, Route, Frequency, Duration) Notes Start Date End Date Status Atorvastatin Calcium 20 MG 1 tablet Oral ly Once a day Active Meloxicam 7.5 MG 1 tablet Orally Once a day Active HYDROcodone-Acetaminophen 10-325 MG 1 tablet as needed Orally every 6 hrs Active Vitamin B12 Active Gabapentin 600 MG 1 tablet Orally Once a day Active Fosamax 20mg PRN Active Centrum Active Omeprazole 20 MG 1 capsule 30 minutes before morning meal Orally Once a day Active Stool Softener 250 MG 1 capsule as neede d Orally Once a day Active AZO Cranberry Active Melatonin Active Slow Magnesium/Calcium Active Biotin Active VITAL SIGNS Blood pressure systolic 131 mm Hg 05/10/20 23 Blood pressure diastolic 90 mm Hg 023 Heart Rate 81 /min 05/10/2023 Height 64 in 05/10/2023 Weight 157 lbs 05/10/2023 BMI 26.95 kg/m2 05/10/2023 Encounters Encounter Location Date Provider Diagnosis [facility] [address] [place] [address] 05/10/2023 ALLYSSA MEDINA Bariatric surgery status Z98.84 and Right upper quadrant pain R10.11 ASSESSMENTS Encounter Date Diagnosis Assessment Notes Treatment Notes Treatment Clinical Notes Section Notes 05/10/2023 Bariatric surgery status (ICD-10 - Z98.84) G tube downized at this time will follow up in one week for removal 05/10/2023 Right upper quadrant pain (ICD-10 - R10.11) resolved with ERCP educated on importance of low fat diet as well 05/10/2023 Other Time spent: 25 minutes. More than 50% spent reviewing diagnostic results, compliance with current medical therapy, counseling patient on low fat diet, weight reduction to normal BMI, normal BMI discussed, avoidance of ETOH/tobacco products, discussing treatment options. Have discussed details of EUS and/or ERCP procedure. Instructed patient regarding management plan, follow-up visits, and stressed importance of compliance with plan. PLAN OF TREATMENT Treatment Notes Assessment Notes Bariatric surgery status G tube downized at this time will follow up in one week for removal Right upper quadrant pain resolved with ERCP educated on importance of low fat diet as well Other Time spent: 25 minut es. More than 50% spent reviewing diagnostic results, compliance with current medical therapy, counseling patient on low fat diet, weight reduction to normal BMI, normal BMI discussed, avoidance of ETOH/tobacco products, discussing treatment options. Have discussed details of EUS and/or ERCP procedure. Instructed patient regarding management plan, follow-up visits, and stressed importance of compliance with plan. Procedure Notes * Category Sub-Category Detail Notes Percutaneous Endoscopic Gastrostomy (PEG) tube insertion Procedure consent was obtained, patient was put in supine position, stomach was well identified with light, sutures were removed, water was removed from balloon, tube was removed with no complaints, skin was cleansed and 16 taiwanese tube was placed in abdominal wall, 10ml of sterile water was placed in balloon, drain sponges were then placed, and paper tape secured dressing, tube was secured to dressing with tape as well. Progress Notes * Carolynn VICK ADOB: [birth year] (72 yo F)Acc No.[id number]:05/10/2023 Progress Notes Patient: MilyJosie chambersyce Rosana Appointment Provider: Allyssa Medina CNP :1950 Age:72 Y Sex:Female Date:05/10/2023 Address:[address] [facility] Pcp:Rodolfo Goodson md Subjective: * Chief Complaints: * 1. GTube Downsize. * HPI: Constitutional: Pleasant 72 year old female with history of DM II, HLD, pernicious anemia, HTN, PAD, PVD, GERD, OA osteoporosis, spinal stenosis, s/p cholecystectomy and patrick-en- y gastric bypass presents today s/p ERCP with Dr Calderon on 04/28/23. She presented to her local ED with complaints of RUQ pain and was seen to have intra and extra hepatic ductal dilation with new 1.6cm mass-like thickening of the distal common bile duct/ampulla. Follow up MRCP on 03/11 showed intra and extra hepatic duct dilation. CBD measuring 1.4cm, filing defect and the distal CBD, suspected gallstone. G tube was then placed by Dr Escobar on 03/31 for an ERCP to be completed by Dr Calderon. ERCP was completed on 04/28 that showed and impacted tone in a significantly dilated bile duct, which was extracted after biliary sphincterotomy. Papillary stenosis was treated with biliary and pancreatic sphincterotomies. Dual duct stenting was performed and removed on 04/30 with excellent drainage noted. She presents today with no complaints of abdominal pain, nausea or vomiting. She has a G tube that is still in place that is needing downsizing at this time. * ROS: Gastrointestinal: Denies Abdominal pain. Denies Blood in stool. Denies Change in bowel habits. Denies Colitis, denies. Denies Constipation. Denies Decreased appetite. Denies Diarrhea. Denies Difficulty swallowing. Denies Exposure to hepatitis. Denies Heartburn. Denies Hematemesis. Denies Hepatitis, denies. Denies Nausea. Denies Rectal bleeding. Denies Stomach problems, denies. Denies Vomiting. Denies Weight loss. * Medical History: type II diabetes, Hyperlipidemia, Pernicious anemia, Hypertension, Peripheral vascular disease, gastroesophageal reflux disease (GERD), Osteoarthritis, Spinal stenosis, Osteoporosis. * Surgical History: cholecystectomy , patrick-en-y gastric bypass , hysterectomy , lumbar surgery , ERCP- 04/28/26 [facility] , left knee arthroscopy . * Family History: Mother: , cancer. * Social History: Tobacco Use: Do you smoke?: Never. Drugs/Alcohol: Caffeine Intake: 1-2 cups per day. Do you smoke marijuana?: Denies. Do you drink alcohol?: No. * Medications: Taking Biotin , Taking Slow Magnesium/Calcium , Taking Melatonin , Taking AZO Cranberry , Taking Stool Softener 250 MG Capsule 1 capsule as needed Orally Once a day , Taking Omeprazole 20 MG Capsule Delayed Release 1 capsule 30 minutes before morning meal Orally Once a day , Taking Centrum , Taking Fosamax , Notes to Pharmacist: 20mg PRN, Taking Meloxicam 7.5 MG Tablet 1 tablet Orally Once a day , Taking Atorvastatin Calcium 20 MG Tablet 1 tablet Orally Once a day , Taking Gabapentin 600 MG Tablet 1 tablet Orally Once a day , Taking Vitamin B12 , Taking HYDROcodone-Acetaminophen 10-325 MG Tablet 1 tablet as needed Orally every 6 hrs , Medication List reviewed and reconciled with the patient * Allergies: Adhesive, Sulfa Antibiotics: rash. Objective: * Vitals: HR:81/min, BP:131/90mm Hg, Wt:157lbs, BMI:26.95Index, Ht:64in, Ht-cm: 162.56 cm, Wt-k.21 kg. * Examination: General Examination: GENERAL APPEARANCE: in no acute distress, well developed, well nourished. HEART: no murmurs, regular rate and rhythm, S1, S2 normal. LUNGS: clear to auscultation bilaterally. ABDOMEN: normal, bowel sounds present, soft, nontender, nondistended, G tube in place with dressing. NEUROLOGIC: alert and oriented, sensory exam intact. Assessment: * Assessment: 1. Bariatric surgery status - Z98.84 (Primary) 2. Right upper quadrant pain - R10.11 Plan: * Treatment: 2. Right upper quadrant pain Notes: resolved with ERCP educated on importance of low fat diet as well. 3. Others Notes: Time spent: 25 minutes. More than 50% spent reviewing diagnostic results, compliance with current medical therapy, counseling patient on low fat diet, weight reduction to normal BMI, normal BMI discussed, avoidance of ETOH/tobacco products, discussing treatment options. Have discussed details of EUS and/or ERCP procedure. Instructed patient regarding management plan, follow-up visits, and stressed importance of compliance with plan. * Procedures: Percutaneous Endoscopic Gastrostomy (PEG) tube insertion: Procedure consent was obtained, patient was put in supine position, stomach was well identified with light, sutures were removed, water was removed from balloon, tube was removed with no complaints, skin was cleansed and 16 taiwanese tube was placed in abdominal wall, 10ml of sterile water was placed in balloon, drain sponges were then placed, and paper tape secured dressing, tube was secured to dressing with tape as well. . * Preventive Medicine: YOUR PREVENTIVE WELLNESS PLAN: Colorectal Cancer Screening: Screening for colorectal cancer was last done on: 08/23/2019 no longer needed. HCG Diet: Nutrition: Education Provided: adequate fluid intake, breakfast, lunch, dinner, daily exercise, food portions, healthy snacks, ideal plate, increase vegatables intake, reducing fat, reducing sodium. Nutrition Counseling: Healthy Food Choices: limit or eliminate junk food, low fat choices, Weight Management: regular exercises, healthy diet with limited calories. * Images: * Electronically signed by RODRÍGUEZ MEDINA NP, MSN PROPULSION MACHINERY SERVICE ENGINEER-BC on 05/10/2023 at 03:17 PM EDT Sign off status: Completed true * Appointment Provider: Allyssa Medina CNP Date: 05/10/2023 History and Physical Notes * HPI (History of Present Illness) Category Sub-Category Detail Notes Category Not es Constitutional Pleasant 72 y ear old female with history of DM II, HLD, pernicious anemia, HTN, PAD, PVD, GERD, OA osteoporosis, spinal stenosis, s/p cholecystectomy and patrick-en- y gastric bypass presents today s/p ERCP with Dr Calderon on 04/28/23. She presented to her local ED with complaints of RUQ pain and was seen to have intra and extra hepatic ductal dilation with new 1.6cm mass-like thickening of the distal common bile duct/ampulla. Follow up MRCP on 03/11 showed intra and extra hepatic duct dilation. CBD measuring 1.4cm, filing defect and the distal CBD, suspected gallstone. G tube was then placed by Dr Escobar on 03/31 for an ERCP to be completed by Dr Calderon. ERCP was completed on 04/28 that showed and impacted tone in a significantly dilated bile duct, which was extracted after biliary sphincterotomy. Papillary stenosis was treated with biliary and pancreatic sphincterotomies. Dual duct stenting was performed and removed on 04/30 with excellent drainage noted. She presents today with no complaints of abdominal pain, nausea or vomiting. She has a G tube that is still in place that is needing downsizing at this time. Examination Category Sub-Category Detail Notes Category Not es General Examination GENERAL APPEARANCE: in no ac unga distress, well developed, well nourished HEART: no murmurs, regular rate and rhythm, S1, S2 normal LUNGS: clear to auscultatio n bilaterally ABDOMEN: normal, bowel sounds present, soft, nontender, nondistended, G tube in place with dressing NEUROLOGIC: alert and oriented, sensory exam intact
--- OUTSIDE RECORDS SUMMARY | 2024-10-26 14:38 | XMS_ITS ---
Author Organization [facility] Address [address] [place] [address] Care Team Providers Care Lace Roller Name Role Phone Hamzah scruggs, Rodolfo Primary Care Provider Linda MEDINA SUPERINTENDENT OIL FIELD DRILLING, ANTONIO Unavailable Gerardo Reynolds Unavailable Unavailable CLAYTON SCRUGGS, DAVON Unavailable [phone] REASON FOR VISIT ERCP w/stent pull viz G tube Encounters Encounter Location Date Provider Diagnosis [facility] [address] [place], [place] [id number] 04/30/2023 DAVON ARNOLD PLAN OF TREATMENT No Information Progress Notes * Carolynn VICK ADOB: [birth year] (73 yo F)Acc No.[id number]:04/30/2023 Patient: Carolynn VICK Provider: Davon Arnold MD, FASGE :1950 Age:72 Y Sex:Female Date:04/30/2023 Address:[address] [place], [place] [id number] Pcp:Rodolfo Goodson md * Images: * Sign off status: Pending * Provider: Davon Arnold MD, FASGE Date: 04/30/2023
--- OUTSIDE RECORDS SUMMARY | 2024-10-26 14:38 | XMS_ITS | Referral Summary ---
Author Organization [facility] Address [address] [place] [place] [address] Care Team Providers Care Funeral Home Associate Name Role Phone Rodolfo Goodson MD Primary Care Provider [phone] Source Comments [facility],non-owned Affiliates and Associated Physician Practices is amultiple site organization consisting of ambulatory clinics and hospital sitesin [place], [place] and [place]. This disclosure is being madepursuant to the Care Everywhere program and may not contain all information available regarding this patient. Last updated 18.[facility] Allergies Active Allergy Reactions Criticality Noted Date Comments Adhesive Sensitivity Rash Medium 05/27/2022 Sulfa Drugs Rash Medium 05/27/2022 Medications * Be aware that medications may not be up to date on this document. Alwaysverify current medications with the patient. Medication Sig Dispensed Refills Start Date End Date Status gabapentin (Neurontin) 600 MG tablet Take 600 mg by mouth at bedtime Active HYDROcodone-acetam inophen (Hayden) 10-325 MG tablet Take 1 tablet by mouth every 6 hours as needed 05/08/2022 Active lisinopril (Prinivil; Zestril) 5 MG tablet Take 5 mg by mouth once daily as needed Active atorvastatin (Lipitor) 20 MG tablet Take 20 mg by mouth once daily Active alendronate (Fosamax) 70 MG tablet Take 70 mg by mouth every 7 days before meal Active Ascorbic Acid 100 MG Take 100 mg by mouth every 24 hours Active biotin 300 MCG tablet Take 1 tablet by mouth once daily Active Cholecalciferol 25 MCG (1000 UT) Take 1 tablet by mouth once daily Active cyanocobalamin (Vitamin B-12) injection cyanocobalamin (vit B-12) 1,000 mcg/mL injection solution INJECT 1ML INTO THE MUSCLE ONCE A MONTH Active Docusate Sodium (DSS) 100 MG Doc-Q-Lace 100 mg capsule TK ONE C PO BID Active furosemide (Lasix) 20 MG tablet Take 20 mg by mouth once daily as needed Active Magnesium Oxide 400 (240 Mg) MG Take 400 mg by mouth at bedtime Active melatonin 1 MG tablet Take 1 mg by mouth at bedtime Active Multiple Vitamin (Daily Vites) TABS Take 1 tablet by mouth once daily Active Potassium Gluconate 550 MG tablet Take 99 mg by mouth once daily Active vitamin A 3 MG (87209 UT) capsule Take 2.4 mg by mouth once daily Active vitamin E (Tocopheryl) 200 UNIT capsule every 24 hours Active omeprazole (PriLOSEC) 20 MG capsule Take 20 mg by mouth daily before breakfast Activ e Active Problems Problem Noted Date Diagnosed Date [...] money to buy more. Never true 06/02/20 22 Within the past 12 months, t he [...] Mass Index 27.46 06/02/2022 8:01 AM CDT Plan of Treatment Not on file Medical Devices Implanted Type Area Truss Builder Device Identifier Shelf Expiration Date Model / Serial / Lot Cmpnt Fem Kn Lt 4 Crcte Rtn Bead Trthln Implanted:Qty: 1 on 06/02/2022 by Neo Pepe MD at [facility] Left: Knee [employer] 05/01/2027 [id number] / / [id number] Cmpnt Ptlr S 31x9mm Tritanium Strl Lf Implanted:Qty: 1 on 06/02/2022 by Neo Pepe MD at [facility] Left: Knee [employer] 04/13/2027 5556-L-319 / / [id number] Bsplt Tib Trthlm 4 Kn Tritanium Implanted:Qty: 1 on 06/02/2022 by Neo Pepe MD at [facility] Left: Knee [employer] 04/12/2027 5536-B-400 / / [id number] Ins Tib 4 10mm Kn X3 Cndrl Stab Brng Implanted:Qty: 1 on 06/02/2022 by Neo Pepe MD at [facility] Left: Knee [employer] 12/25/2026 5531-G-410 -[id number] / / [id number] Advance Directives * Full Code (Latest Code Status on File) Date Activated Date Inactivated Comments 06/02/2022 1:19 PM 06/03/2022 4:48 PM Care Teams Funeral Home Associate Relationship Specialty Start Date End Date Rodolfo Goodson MD [address] [address] PCP - General Internal Medicine 05/27/22
--- OUTSIDE RECORDS SUMMARY | 2024-10-26 14:38 | XMS_ITS | Clinical Summary ---
Author Organization [facility] [employer] Address [address] [place] [address] Care Team Providers Care Cherry Pitter Name Role Phone Rodolfo Goodson MD Primary Care Provider [phone] Source Comments [facility] [employer],non-owned Affiliates and Associated Physician Practices is amultiple site organization consisting of ambulatory clinics and hospital sitesin [place] and [place]. This disclosure is being madepursuant to the Care Everywhere program and may not contain all information available regarding this patient. Last updated 18.[facility] [employer] Allergies Active Allergy Reactions Criticality Noted Date Comments Adhesive Sensitivity Rash Medium 05/27/2022 Sulfa Drugs Rash Medium 05/27/2022 Medications * Be aware that medications may not be up to date on this document. Alwaysverify current medications with the patient. Medication Sig Dispensed Refills Start Date End Date Status gabapentin (Neurontin) 600 MG tablet Take 600 mg by mouth at bedtime Active HYDROcodone-acetam inophen (Alligator) 10-325 MG tablet Take 1 tablet by [...] once daily Active vitamin A 3 MG (74515 UT) capsule Take 2.4 mg by mouth [...] 06/02/2022 8:01 AM CDT Plan of Treatment Health Maintenance Due Date Last Done Comments BONE DENSITY TESTING 1950 COLOGUARD (AGES 45-75) - COLON CA SCREENING 1950 COLON MONITORING 1948 COLONOSCOPY - COLON CA SCREENING 1948 CT COLONOGRAPHY - COLON CA SCREENING 1950 Colorectal Cancer Screening 1950 FIT - COLON CA SCREENING 1948 FLEX SIG - COLON CA SCREENING 1950 MAMMOGRAM 1950 MEDICARE AWV 12 MONTHS 1950 HEPATITIS C SCREENING 12/07/1966 DTAP/TDAP/TD VACCINES (1 - Tdap) 12/12/1967 PNEUMOCOCCAL VACCINE 50+ (1 of 1 - PCV) 1998 ZOSTER VACCINE (1 of 2) 1998 Respiratory Syncytial Virus (RSV) Vaccine Pt: or over 60 yrs (1 - 1-dose 75+ series) 12/12/2023 COVID-19 VACCINE ( - 2023- season) 2024 07/21/2021, 10/21/2020, 09/23/2020 INFLUENZA VACCINE (#1) 2024 , 06/16/2016, 05/27/2016, Additional history exists DEPRESSION SCREENING 08/23/2024 HEPATITIS B VACCINE Aged Out No longe r eligible based on patient's age to complete this topic HIB VACCINE Aged Out No longer eligi ble based on patient's age to complete this topic HPV VACCINE Aged Out No longer eligi ble based on patient's age to complete this topic MENINGOCOCCAL (Group B) VACCINE Aged Out No longer eligible based on patient's age to complete this topic MENINGOCOCCAL VACCINE Aged Out No angel chalino eligible based on patient's age to complete this topic Medical Devices Implanted Type Area Manager Of Purchasing Device Identifier Shelf Expiration Date Model / Serial / Lot Cmpnt Fem Kn Lt 4 Crcte Rtn Bead Trthln Implanted:Qty: 1 on 06/02/2022 by Neo Pepe MD at [facility] Left: Knee [employer] 05/01/2027 [id number] / / [id number] Cmpnt Ptlr S 31x9mm Tritanium Strl Lf Implanted:Qty: 1 on 06/02/2022 by Neo Pepe MD at [facility] Left: Knee [employer] 04/13/2027 [id number]-L-319 / / [id number] Bsplt Tib Trthlm 4 Kn Tritanium Implanted:Qty: 1 on 06/02/2022 by Neo Pepe MD at [facility] Left: Knee [employer] 04/12/2027 5536-B-400 / / [id number] Ins Tib 4 10mm Kn X3 Cndrl Stab Brng Implanted:Qty: 1 on 06/02/2022 by Neo Pepe MD at [facility] Left: Knee [employer] 12/25/2026 5531-G-410 -[id number] / / [id number] Advance Directives * Full Code (Latest Code Status on File) Date Activated Date Inactivated Comments 06/02/2022 1:19 PM 06/03/2022 4:48 PM Care Teams Cherry Pitter Relationship Specialty Start Date End Date Rodolfo Goodson MD [address] [facility] [address] [place] [address] PCP - General Internal Medicine 05/27/22
--- OUTSIDE RECORDS SUMMARY | 2024-10-26 14:38 | XMS_ITS | Clinical Summary ---
Author Organization [facility] Address [address] [place] [address] Phone Care Team Providers Care Windows Application Packager Name Role Phone Unavailable Primary Care Provider Unavailabl e Allergies No known active allergies Medications HYDROcodone-acet aminophen (LORTAB) 10-500 mg Oral Tab Take 1 Tab by mouth every 4 hours as needed. Active carisoprodol (SOMA) 350 mg Oral tablet Take 350 mg by mouth 4 times daily. Active multivitamin (DAILY-EMERSON) Oral tablet Take 1 Tab by mouth daily. Active Active Problems Problem Noted Date Diagnosed Date Back pain, lumbosacral 10/20/2012 Family History Medical History Relation Name Comments Breast Cancer Mother Relation Name Status Comments Mother Social History Tobacco Use Types Packs/Day Years Used Date Smoking Tobacco: Never Alcohol Use Standard Drinks/Week Comments Not Asked 0 (1 standard drink = 0.6 oz pur e alcohol) Comments Unknown Sex and Gender Information Value Date Recorded Sex Assigned at Not on file Legal Sex Female 10:23 AM STERILE PRODUCTS PROCESSOR Gender Identity Not on file Sexual Orientation Not on file Occupation Industry Job Start Date Job End Date Not on file Not on file Not on file Not on file Last Filed Vital Signs Vital Sign Reading Time Taken Comments Blood Pressure 143/92 10/20/2012 11:02 AM STERILE PRODUCTS PROCESSOR Pulse 99 10/20/2012 11:02 AM STERILE PRODUCTS PROCESSOR Temperature - - Respiratory Rate - - Oxygen Saturation - - Inhaled Oxygen Concentration - - Weight 74.8 kg (165 lb) 10/20/2012 11:02 AM STERILE PRODUCTS PROCESSOR Height 164.6 cm (5' 4.8 ) 10/20/2012 11:02 AM CS T Body Mass Index 27.63 10/20/2012 11:02 AM STERILE PRODUCTS PROCESSOR Plan of Treatment Health Maintenance Due Date Last Done Comments DTAP/TDAP/TD VACCINES (1 - Tdap) 12/12/1967 COLORECTAL SCREENING 1993 Colorectal Cancer Screening 1993 FIT-DNA Q 3 years 1993 FIT/FOBT Q 1 year 1993 Flex Sig/CT Colonography Q 5 years 1993 PNEUMOCOCCAL VACCINE 50+ YEARS (1 of 1 - PCV) 12/11/18 99 ZOSTER VACCINE (1 of 2) 1998 OSTEOPOROSIS SCREENING 2013 RSV VACCINE (60+ or ) (1 - 1-dose 75+ series) 12/12/2023 INFLUENZA VACCINE (#1) 2024
--- OUTSIDE RECORDS SUMMARY | 2024-10-26 14:38 | XMS_ITS | Continuity of Care Document ---
Author Organization [facility] Address [address] [place] [address] Phone Care Team Providers Care Laboratory Clerk Name Role Phone Wilfredo Fenton MD Unavailable Unavailable Procedures Procedure Date LOWER EXTREM CAT W/O CONTRAST 2 Advance Directives Directive Yes / No Effective Date File Name No Information Encounters Encounter Description Practice Location Reason(s) For Visit Diagnoses Date Provider Providers Copied on Encounter [facility], [address], [place], [place], [id number], [place] tel:[phone] [facility] No Information Eilceo Villalobos. [address] [place], [place], [id number], [place]. tel:[phone] Referring Provider: Neo Pepe, [address], [place], [address]. tel:[phone] Family History Family Member Type Diagnosis Age At Onset No Information Payers Payer name Insurance type Covered republican ID Authoriza tion(s) MEDICARE MB [id number] [employer] M[place] SUPPLEMENT CI [id number] Social History Type Description Quantity Date Captured [...]
--- OUTSIDE RECORDS SUMMARY | 2024-10-26 14:38 | XMS_ITS | Data Portability ---
Author Organization [facility], Main Office Address [address] [place] [address] Care Team Providers Care [employer] Driver Name Role Phone MORGAN GOODSON Primary Care Provider [phone] MORGAN GOODSON Referring Provider [phone] Assessment Encounter Date Assessment Date Assessment LastModified by Organization Details LastModified Time 01/07/2024 01/07/2024 Oversite provider was present on site during this visit I attest that I have provided general supervision for chronic care management. [email or web address] Not available 01/07/2024 10:52:09 Plan of Treatment Reminders Order Date Submit Date Provider Last Modified By Organization Details Last Modified Time Details Appointments None recorded. Lab vitamin E, serum 2023 [facility] Lab, [address] [place], [address], 19:09:18 vitamin A (retinol), serum 2023 [facility], [address] [place], [address], 12:14:05 vitamin B12, serum 2023 024 [facility], [address] [place], [address], 12:29:23 vitamin D, 25-hydroxy, total, serum 2023 024 [email or web address] [facility] Out[facility] Lab, [address] [place], [address], 4 10:42:04 pancreatic elastase, quant, stool 2023 [facility], [address] [place], [address], 4 02:07:38 cancer Ag 19-9, QL, serum or plasma 2023 [facility], [address] [place], [address], 4 10:42:05 lipid panel, serum 2023 [facility], [address] [place], [address], 11:39:42 CMP, serum or plasma 2023 [facility], [address] [place], [address], 11:39:48 T4, free, serum 2023 [facility], [address] [place], [address], 12:28:02 TSH, serum or plasma 2023 [facility], [address] [place], [address], 12:28:25 CBC w/ auto diff 2023 024 [facility], [address] [place], [address], 11:26:18 Referral None recorded. Procedures None recorded. Surgeries None recorded. Imaging None recorded. Medication Orders None recorded. Patient TargetsNo targets recorded. Patient Instructions Encounter Date Encounter Id Patient Instructions Last Modified By Organization Details Last Modified Time 01/07/2024 [id number] low back pain educational exercises [email or web address] Not available 01/07/2024 11:59:59 heart-healthy di et: care instructions [email or web address] Not available 01/07/2024 11:59:59 01/24/2024 [id number] Essential hypertension, hyperlipidemia, peripheral venous insufficiency as well as senile osteoporosis all clinically stable. Has had some recent blood work performed which looked adequate. Will check an echocardiogram for assessment of left ventricular function and any valvular abnormalities. Will continue on current Rx follow-up in four months. Echocardiogram for exertional dyspnea Portions of the record may have been created with voice recognition software. Occasional wrong-word or yapki-s-jcnq substitutions may have occurred due to the inherent limitations of voice recognition software. Read the chart carefully and recognize, using context, where substitutions have occurred. [email or web address] Not available 01/24/2024 14:47:23 02/14/2024 [id number] Counting Carbohydrates for Diabetes: Care Instructions [email or web address] Not available 02/14/2024 16:10:50 03/17/2024 [id number] fall prevention education [email or web address] Not available 03/17/2024 12:27:18 urinary tract infection (uti) education Not available 03/17/2024 12:27:18 heart-healthy di et: care instructions [email or web address] Not available 03/17/2024 12:27:18 Learning About B E FAST: Stroke Warning Signs [email or web address] Not available 03/17/2024 12:27:18 05/29/2024 [id number] Follow-up essent ial hypertension, GERD, hyperlipidemia and chronic pain syndrome. Will check blood work consisting of CBC, CMP, lipid, thyroid some vitamin E a the and B12. This is predominantly predicated on the patient's history of gastric bypass. Recheck as CEA 19-9 because an elevated level in the past. Additional Orders - Directives - Recommendations 1. Needs a follow-up colonoscopy after the of the year for 10 year follow-up. Portions of the record may have been created with voice recognition software. Occasional wrong-word or yyoyl-a-[id number] substitutions may have occurred due to the inherent limitations of voice recognition software. Read the chart carefully and recognize, using context, where substitutions have occurred. [email or web address] Not available 05/29/2024 14:53:59 Reason for Referral None Reported. Results Created Date Observation Date Name Description Value Unit Range Abnormal Flag Note LastModifiedBy Organization Detail LastModifiedTime 01/24/20 24 01/24/2024 URINA LYSIS COMPL ETE/I RIS W/RFX color YELLOW Not Available [facility] (Lab) [address] [place], [address], 01/24/2024 16:12:57 01/24/20 24 01/24/2024 URINA LYSIS COMPL ETE/I RIS W/RFX appear TURBID abnormal Not Available [facility] (Lab) [address] [place], [address], 01/24/2024 16:12:57 01/24/20 24 01/24/2024 URINA LYSIS COMPL ETE/I RIS W/RFX specific gravity 1.034 1.001- 1.030 high Not Available [facility] (Lab) [address] [place], [address], 01/24/2024 16:12:57 01/24/20 24 01/24/2024 URINA LYSIS COMPL ETE/I RIS W/RFX pH 5.0 pH_un its 5.0-9. 0 Not Available [facility] (Lab) [address] [place], [address], 01/24/2024 16:12:57 01/24/20 24 01/24/2024 URINA LYSIS COMPL ETE/I RIS W/RFX leukocytes 75 mikhail/u L negati ve- abnormal Not Available [facility] (Lab) [address] [place], [address], 01/24/2024 16:12:57 01/24/20 24 01/24/2024 URINA LYSIS COMPL ETE/I RIS W/RFX nitrite NEGATI VE negati ve- Not Available [facility] (Lab) [address] [place], [address], 01/24/2024 16:12:57 01/24/20 24 01/24/2024 URINA LYSIS COMPL ETE/I RIS W/RFX protein 10 mg/dL negati ve- abnormal Not Available [facility] (Lab) [address] [place], [address], 01/24/2024 16:12:57 01/24/20 24 01/24/2024 URINA LYSIS COMPL ETE/I RIS W/RFX glucose NORMAL mg/dL normal - Not Available [facility] (Lab) [address] [place], [address], 01/24/2024 16:12:57 01/24/20 24 01/24/2024 URINA LYSIS COMPL ETE/I RIS W/RFX ketones NEGATI VE mg/dL negati ve- Not Available [facility] (Lab) [address] [place], [address], 01/24/2024 16:12:57 01/24/20 24 01/24/2024 URINA LYSIS COMPL ETE/I RIS W/RFX urobilinogen 2 mg/dL normal - abnormal Not Available [facility] (Lab) [address] [place], [address], 01/24/2024 16:12:57 01/24/20 24 01/24/2024 URINA LYSIS COMPL ETE/I RIS W/RFX bilirubin NEGATI VE mg/dL negati ve- Not Available [facility] (Lab) [address] [place], [address], 01/24/2024 16:12:57 01/24/20 24 01/24/2024 URINA LYSIS COMPL ETE/I RIS W/RFX blood NEGATI VE mg/dL negati ve- abnormal Not Available [facility] (Lab) [address] [place], [address], 01/24/2024 16:12:57 01/24/20 24 01/24/2024 URINA LYSIS COMPL ETE/I RIS W/RFX color YELLOW Not Available [facility] (Lab) [address] [place], [address], 01/24/2024 16:14:45 01/24/20 24 01/24/2024 URINA LYSIS COMPL ETE/I RIS W/RFX appear TURBID abnormal Not Available [facility] (Lab) [address] [place], [address], 01/24/2024 16:14:45 01/24/20 24 01/24/2024 URINA LYSIS COMPL ETE/I RIS W/RFX specific gravity 1.034 1.001- 1.030 high Not Available [facility] (Lab) [address] [place], [address], 01/24/2024 16:14:45 01/24/20 24 01/24/2024 URINA LYSIS COMPL ETE/I RIS W/RFX pH 5.0 pH_un its 5.0-9. 0 Not Available [facility] (Lab) [address] [place], [address], 01/24/2024 16:14:45 01/24/20 24 01/24/2024 URINA LYSIS COMPL ETE/I RIS W/RFX leukocytes 75 mikhail/u L negati ve- abnormal Not Available [facility] (Lab) [address] [place], [address], 01/24/2024 16:14:45 01/24/20 24 01/24/2024 URINA LYSIS COMPL ETE/I RIS W/RFX nitrite NEGATI VE negati ve- Not Available [facility] (Lab) [address] [place], [address], 01/24/2024 16:14:45 01/24/20 24 01/24/2024 URINA LYSIS COMPL ETE/I RIS W/RFX protein 10 mg/dL negati ve- abnormal Not Available [facility] (Lab) [address] [place], [address], 01/24/2024 16:14:45 01/24/20 24 01/24/2024 URINA LYSIS COMPL ETE/I RIS W/RFX glucose NORMAL mg/dL normal - Not Available [facility] (Lab) [address] [place], [address], 01/24/2024 16:14:45 01/24/20 24 01/24/2024 URINA LYSIS COMPL ETE/I RIS W/RFX ketones NEGATI VE mg/dL negati ve- Not Available [facility] (Lab) [address] [place], [address], 01/24/2024 16:14:45 01/24/20 24 01/24/2024 URINA LYSIS COMPL ETE/I RIS W/RFX urobilinogen 2 mg/dL normal - abnormal Not Available [facility] (Lab) [address] [place], [address], 01/24/2024 16:14:45 01/24/20 24 01/24/2024 URINA LYSIS COMPL ETE/I RIS W/RFX bilirubin NEGATI VE mg/dL negati ve- Not Available [facility] (Lab) [address] [place], [address], 01/24/2024 16:14:45 01/24/20 24 01/24/2024 URINA LYSIS COMPL ETE/I RIS W/RFX blood NEGATI VE mg/dL negati ve- Not Available [facility] (Lab) [address] [place], [address], 01/24/2024 16:14:45 01/24/20 24 01/24/2024 URINA LYSIS COMPL ETE/I RIS W/RFX white blood cells 0-8 /i??h pfi?? 0-8 Not Available [facility] (Lab) [address] [place], [address], 01/24/2024 16:14:45 01/24/20 24 01/24/2024 URINA LYSIS COMPL ETE/I RIS W/RFX red blood cells 0-4 /i??h pfi?? 0-4 Not Available [facility] (Lab) [address] [place], [address], 01/24/2024 16:14:45 01/24/20 24 01/24/2024 URINA LYSIS COMPL ETE/I RIS W/RFX bacteria NONE Not Available [facility] (Lab) [address] [place], [address], 01/24/2024 16:14:45 01/24/20 24 01/24/2024 URINA LYSIS COMPL ETE/I RIS W/RFX mucous OCCASI ONAL /i??l pfi?? abnormal Not Available [facility] (Lab) [address] [place], [address], 01/24/2024 16:14:45 01/24/20 24 01/24/2024 URINA LYSIS COMPL ETE/I RIS W/RFX squamous epithelial MANY /i??l pfi?? abnormal Not Available [facility] (Lab) [address] [place], [address], 01/24/2024 16:14:45 01/24/20 24 01/24/2024 URINA LYSIS COMPL ETE/I RIS W/RFX hyaline cast MODERA TE /i??l pfi?? none seen- abnormal Not Available [facility] (Lab) [address] [place], [address], 01/24/2024 16:14:45 05/31/20 24 05/31/2024 CBC/C OMPLE TE BLD COUNT W/DIF F white blood cells 5.1 x10'3 /uL 4.2-10 .8 Not Available [facility] (Lab) [address] [place], [address], 05/31/2024 11:26:18 05/31/2005/31/2024 CBC/C OMPLE TE BLD COUNT W/DIF F red blood cells 4.13 x10'6 /uL 3.80-5 .20 Not Available [facility] (Lab) [address] [place], [address], 05/31/2024 11:26:18 05/31/2005/31/2024 CBC/C OMPLE TE BLD COUNT W/DIF F hemoglobin 11.5 g/dL 12.0-1 5.6 low Not Available [facility] (Lab) [address] [place], [address], 05/31/2024 11:26:18 05/31/2005/31/2024 CBC/C OMPLE TE BLD COUNT W/DIF F hematocrit 37.5 % 35.7-4 5.7 Not Available [facility] (Lab) [address] [place], [address], 05/31/2024 11:26:18 05/31/2005/31/2024 CBC/C OMPLE TE BLD COUNT W/DIF F mean red cell volume 90.8 fL 82.0-9 9.0 Not Available [facility] (Lab) [address] [place], [address], 05/31/2024 11:26:18 05/31/2005/31/2024 CBC/C OMPLE TE BLD COUNT W/DIF F mean red cell hemoglobin 27.8 pg 27.0-3 3.0 Not Available [facility] (Lab) [address] [place], [address], 05/31/2024 11:26:18 05/31/20 24 05/31/2024 CBC/C OMPLE TE BLD COUNT W/DIF F mean RBC HGB concentratio n 30.7 g/dL 31.0-3 6.0 low Not Available [facility] (Lab) [address] [place], [address], 05/31/2024 11:26:18 05/31/2005/31/2024 CBC/C OMPLE TE BLD COUNT W/DIF F red cell distribution width 14.3 % 11.8-1 5.5 Not Available [facility] (Lab) [address] [place], [address], 05/31/2024 11:26:18 05/31/2005/31/2024 CBC/C OMPLE TE BLD COUNT W/DIF F platelets 223 x10'3 /uL 150-40 0 Not Available [facility] (Lab) [address] [place], [address], 05/31/2024 11:26:18 05/31/2005/31/2024 CBC/C OMPLE TE BLD COUNT W/DIF F mean platelet volume 8.8 fL 9.0-12 .4 low Not Available [facility] (Lab) [address] [place], [address], 05/31/2024 11:26:18 05/31/2005/31/2024 CBC/C OMPLE TE BLD COUNT W/DIF F neutrophils 53.0 % 39.0-7 2.0 Not Available [facility] (Lab) [address] [place], [address], 05/31/2024 11:26:18 05/31/2005/31/2024 CBC/C OMPLE TE BLD COUNT W/DIF F lymphocytes 36.0 % 16.0-4 7.0 Not Available [facility] (Lab) [address] [place], [address], 05/31/2024 11:26:18 05/31/20 24 05/31/2024 CBC/C OMPLE TE BLD COUNT W/DIF F monocytes 8.6 % 5.0-12 .0 Not Available [facility] (Lab) [address] [place], [address], 05/31/2024 11:26:18 05/31/2005/31/2024 CBC/C OMPLE TE BLD COUNT W/DIF F eosinophils 1.8 % 1.0-7. 0 Not Available [facility] (Lab) [address] [place], [address], 05/31/2024 11:26:18 05/31/2005/31/2024 CBC/C OMPLE TE BLD COUNT W/DIF F basophils 0.4 % 0.0-2. 0 Not Available [facility] (Lab) [address] [place], [address], 05/31/2024 11:26:18 05/31/2005/31/2024 CBC/C OMPLE TE BLD COUNT W/DIF F immature granulocytes 0.2 % 0.00-0 .50 Not Available [facility] (Lab) [address] [place], [address], 05/31/2024 11:26:18 05/31/2005/31/2024 CBC/C OMPLE TE BLD COUNT W/DIF F neutrophils, absolute count 2.70 x10'3 /uL 1.5-8. 0 Not Available [facility] (Lab) [address] [place], [address], 05/31/2024 11:26:18 05/31/2005/31/2024 CBC/C OMPLE TE BLD COUNT W/DIF F lymphocytes, absolute count 1.83 x10'3 /uL 1.07-3 .43 Not Available [facility] (Lab) [address] [place], [address], 05/31/2024 11:26:18 05/31/20 24 05/31/2024 CBC/C OMPLE TE BLD COUNT W/DIF F monocytes, absolute count 0.44 x10'3 /uL 0.29-0 .99 Not Available [facility] (Lab) [address] [place], [address], 05/31/2024 11:26:18 05/31/2005/31/2024 CBC/C OMPLE TE BLD COUNT W/DIF F eosinophils, absolute count 0.09 x10'3 /uL 0.02-0 .53 Not Available [facility] (Lab) [address] [place], [address], 05/31/2024 11:26:18 05/31/2005/31/2024 CBC/C OMPLE TE BLD COUNT W/DIF F basophils, absolute count 0.02 x10'3 /uL 0.01-0 .08 Not Available [facility] (Lab) [address] [place], [address], 05/31/2024 11:26:18 05/31/2005/31/2024 CBC/C OMPLE TE BLD COUNT W/DIF F immature granulocytes ,absolute 0.01 x10'3 /uL 0.00-0 .05 Not Available [facility] (Lab) [address] [place], [address], 05/31/2024 11:26:18 05/31/2005/31/2024 CBC/C OMPLE TE BLD COUNT W/DIF F nucleated red blood cells 0.0 % -0 Not Available [facility] (Lab) [address] [place], [address], 05/31/2024 11:26:18 05/31/2005/31/2024 CBC/C OMPLE TE BLD COUNT W/DIF F NRBC# 0.00 x10'3 /uL Not Available [facility] (Lab) [address] [place], [address], 05/31/2024 11:26:18 05/31/2015 0605/31/2024 LIPID PANEL cholesterol 179 mg/dL 140-19 9 NIH PENNY NSUS RECOM MENDA TION FOR KAMRON STERO L: ADULT CHILD LOW RISK: <200 <170 BORDE RLINE : <200- 239 ----- HIGH RISK: >240 >200 Not Available [facility] (Lab) [address] [place], [address], 05/31/2024 11:39:42 05/31/2005/31/2024 LIPID PANEL triglyceride s 90 mg/dL 0-150 NIH PENNY NSUS REPOR T RECOM MENDA TION FOR TRIGL YCERI PO: ADULT CHILD LOW RISK: <150 ----- BODER LINE: 150-1 99 ----- HIGH RISK: >200 ----- Not Available [facility] (Lab) [address] [place], [address], 05/31/2024 11:39:42 05/31/2005/31/2024 LIPID PANEL HDL cholesterol 65 mg/dL 40- Not Available [facility] (Lab) [address] [place], [address], 05/31/2024 11:39:42 05/31/20 24 05/31/2024 LIPID PANEL LDL cholesterol, calculated 96 mg/dL 0-130 NIH PENNY NSUS REPOR T RECOM MENDA TIONS FOR LDL: ADULT CHILD LOW RISK <130 <110 (OPTI MAL LDL) <100 ----- BORDE RLINE : 130-1 59 ----- HIGH RISK: >160 >130 A TRIGL YCERI DE RESUL T >400 INVAL IDATE S THE CALCU LATIO N FOR LDL FRACT IONAT ION - THE LDL RESUL T WILL NOT BE REPOR CARLOS. Not Available [facility] (Lab) [address] [place], [address], 05/31/2024 11:39:42 05/31/20 24 05/31/2024 COMPR EHENS EDGARDO METAB OLIC PANEL sodium 137 mmol/ L 137-14 5 Not Available [facility] (Lab) [address] [place], [address], 05/31/2024 11:39:48 05/31/2005/31/2024 COMPR EHENS EDGARDO METAB OLIC PANEL potassium 4.6 mmol/ L 3.5-5. 1 Not Available [facility] (Lab) [address] [place], [address], 05/31/2024 11:39:48 05/31/2005/31/2024 COMPR EHENS EDGARDO METAB OLIC PANEL chloride 107 mmol/ L 98-107 Not Available [facility] (Lab) [address] [place], [address], 05/31/2024 11:39:48 05/31/2005/31/2024 COMPR EHENS EDGARDO METAB OLIC PANEL carbon dioxide 27 mmol/ L 22-30 Not Available [facility] (Lab) [address] [place], [address], 05/31/2024 11:39:48 05/31/2005/31/2024 COMPR EHENS EDGARDO METAB OLIC PANEL anion gap 7.6 mmol/ L 14-22 low Not Available [facility] (Lab) [address] [place], [address], 05/31/2024 11:39:48 05/31/2005/31/2024 COMPR EHENS EDGARDO METAB OLIC PANEL glucose 84 mg/dL 70-99 Not Available [facility] (Lab) [address] [place], [address], 05/31/2024 11:39:48 05/31/2005/31/2024 COMPR EHENS EDGARDO METAB OLIC PANEL BUN 29 mg/dL 8-19 high Not Available [facility] (Lab) [address] [place], [address], 05/31/2024 11:39:48 05/31/2005/31/2024 COMPR EHENS EDGARDO METAB OLIC PANEL creatinine 1.07 mg/dL 0.66-1 .25 Not Available [facility] (Lab) [address] [place], [address], 05/31/2024 11:39:48 05/31/20 24 05/31/2024 COMPR EHENS EDGARDO METAB OLIC PANEL GFR 50 Refer ence Range : [place] ge GFR Healt hy Adult : >60 mL/mi n/1.7 3 m2 Chron ic Kidne y Disea se: 15-60 mL/mi n/1.7 3 m2 Kidne y Failu re: <15/m L/min /1.73 m2 www.n iddk. nih.g ov The MDRD study equat ion has not been valid ated in child corrie <18 years of age; pregn ant women ; the elder ly >85 years of age; or in some racia l or ethni c subgr oups, such as Hismn nics. Outsi de the valid ated faizan eters , estim ated GFR is less accur ate, requi ring clini bong judgm ent on a case- by-ca se basis . Clini bong inter preta tion for other races and ages must be made by the clini librado. The MDRD study equat ion has not been valid ated for the evalu ation of serum creat inine relat ed to nutri kathi l statu s or medic ation usage . For perso ns <18 years of age, a pedia tric GFR calcu lator is avail able on the [facility] websi te: https ://ww w.kid bell.o rg/pr ofess ional s/kdo qi/gf r_cal culat or Not Available [facility] (Lab) [address] [place], [address], 05/31/2024 11:39:48 05/31/20 24 05/31/2024 COMPR EHENS EDGARDO METAB OLIC PANEL alkaline phosphatase 79 U/L 38-126 Not Available [facility] (Lab) [address] [place], [address], 05/31/2024 11:39:48 05/31/2005/31/2024 COMPR EHENS EDGARDO METAB OLIC PANEL alanine aminotransfe rase 22 U/L 0-35 Not Available [facility] (Lab) [address] [place], [address], 05/31/2024 11:39:48 05/31/2005/31/2024 COMPR EHENS EDGARDO METAB OLIC PANEL aspartate aminotransfe rase 28 U/L 15-37 Not Available [facility] (Lab) [address] [place], [address], 05/31/2024 11:39:48 05/31/2005/31/2024 COMPR EHENS EDGARDO METAB OLIC PANEL bilirubin, total 0.50 mg/dL 0.20-1 .30 Not Available [facility] (Lab) [address] [place], [address], 05/31/2024 11:39:48 05/31/2005/31/2024 COMPR EHENS EDGARDO METAB OLIC PANEL calcium 9.2 mg/dL 8.4-10 .2 Not Available [facility] (Lab) [address] [place], [address], 05/31/2024 11:39:48 05/31/2005/31/2024 COMPR EHENS EDGARDO METAB OLIC PANEL total protein 6.2 g/dL 6.3-8. 2 low Not Available [facility] (Lab) [address] [place], [address], 05/31/2024 11:39:48 05/31/2005/31/2024 COMPR EHENS EDGARDO METAB OLIC PANEL albumin 3.6 g/dL 3.0-4. 4 Not Available [facility] (Lab) [address] [place], [address], 05/31/2024 11:39:48 05/31/2005/31/2024 COMPR EHENS EDGARDO METAB OLIC PANEL globulin 2.6 g/dL 2.6-4. 2 Not Available [facility] (Lab) [address] [place], [address], 05/31/2024 11:39:48 05/31/20 24 05/31/2024 COMPR EHENS EDGARDO METAB OLIC PANEL A/G ratio 1.4 ratio 1.0-2. 0 Not Available [facility] (Lab) [address] [place], [address], 05/31/2024 11:39:48 05/31/2005/31/2024 VITAM IN D 25-HY DROXY vd25oh 72.0 NG/mL 30-100 Vitam in D Statu s: Defic ient: <20 ng/mL Insuf ficie nt: 20-29 ng/mL Suffi cient : 30-10 0 ng/mL Not Available [facility] (Lab) [address] [place], [address], 05/31/2024 11:55:30 05/31/2005/31/2024 T4 FREE free T4 0.95 NG/dL 0.78-2 .19 Not Available [facility] (Lab) [address] [place], [address], 05/31/2024 12:28:02 05/31/2005/31/2024 TSH thyroid-stim ulating hormone 0.035 uIU/m L 0.465- 4.680 low Not Available [facility] (Lab) [address] [place], [address], 05/31/2024 12:28:25 05/31/2005/31/2024 VITAM IN B12 (SHRAMILA DOUGLAS ) vb12 >1000 pg/mL 239-93 1 high Not Available [facility] (Lab) [address] [place], [address], 05/31/2024 12:29:23 05/31/20 24 06/01/2024 L0022 61 CA 19-9 (CANC ER AG) Ca 19-9 9 U/mL 0-35 Lito Diagn ostic s Elect lito milum inesc ence Immun oassa y (ECLI A) . Value s obtai sunshine with diffe rent assay metho ds or kits canno t be used inter ortega eably . Resul ts canno t be inter prete d as absol [place] evide nce of the prese nce or [facility]en [facility] de[facility] reza se. Perfo rmed at: - [facility] [address] [place] [address] Lab Direc tor: Pastor chang PhD, Phone : [phone] Not Available [facility] (Lab) [address] [place], [address], 06/01/2024 08:18:41 05/31/20 24 06/07/2024 VITAM IN E vitamin E(alpha tocopherol) 12.2 mg/L 9.0-29 .0 Not Available [facility] (Lab) [address] [place], [address], 06/07/2024 19:09:18 05/31/20 24 06/07/2024 VITAM IN E vitamin E(gamma tocopherol) 0.5 mg/L 0.5-4. 9 Refer ence inter vals for alpha and gamma -toco phero l deter mined from [facility] Nutri tion Exami natio n Surve y, 2004- 2005. Indiv idual s with alpha -toco phero l level s less than 5.0 mg/L are consi dered vitam in E defic ient. Perfo rmed at: - [facility] [place] [address] [facility] , [place] [address] Lab Direc tor: Rina link MD, Phone : [phone] Not Available [facility] (Lab) [address] [place], [address], 06/07/2024 19:09:18 05/31/20 24 06/08/2024 VITAM IN A, SERUM vitamin A 59.5 ug/dL 22.0-6 9.5 Refer ence inter vals for vitam in A deter mined from [facility] inter nal studi es. Indiv idual s with vitam in A less than 20 ug/dL are consi dered vitam in A defic ient and those with serum penny ntrat ions less than 10 ug/dL are consi dered sever sixto defic ient. . This test was devel oped and its perfo rmanc e jagdish cteri stics deter mined by [facility]. It has not been clear ed or appro roly by the Food and Drug Admin istra tion. Perfo rmed at: [facility] [place] [id number] Lab Direc tor: Rina link MD, Phone : [phone] Not Available [facility] (Lab) [address] [place], [address], 06/08/2024 12:14:05 06/02/20 24 06/05/2024 PANCR EATIC ELAST ASE, FECAL pancreatic elastase, fecal 308 ug_el ast./ g >200 Sever e Pancr eatic Insuf ficie ncy: <100 Moder ate Pancr eatic Insuf ficie ncy: 100 - 200 Marquita l: >200 Perfo rmed at: [facility] [address] [place] [id number] Lab Direc tor: Rina link MD, Phone : [phone] Not Available [facility] (Lab) [address] [place], [address], 06/05/2024 02:07:37 02/08/20 24 02/08/2024 DEXA, axial skele ton [facility] [address] [place] [address] [phone] Patien t Name: EPPERS ON, CAROLYNN Access ion #: [id number] Sex: F : 1950 5 Dictat ed By: Gildardo Quintanilla Attend ing Physic hien: JENNIFER GOODSON Ordersage memorial hospital Physic hien: JENNIFER GOODSON Exam Date: 2023 12:42 PM Exam Name: XR DEXA-H IPS PELVIS SPINE Admitt ing Diagno sis(es ): INDICA TION: 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 Fractu re probab ility calcul ated for an untrea carlos patien t. Fractu re probab ility may be lower if the patien t has receiv ed treatm ent. T-scor e: compar clint by kalina booker deviat ion (SD) to a young adult popula tion, matche d for sex and ethnic ity (used for postme nopaus al women and men >50 years) and classi fied by WHO criter ia. -1.0: normal <-1.0 to >-2.5: osteop enia -2.5: osteop orosis -2.5 plus fragil ity fractu re: severe osteop orosis Z-scor e: compar ed by SD to an age, sex, and ethnic ity popula tion (used for Page 1 [facility] [place] [address] Mark t Name: CAROLYNN SHAH Access ion #: [id number] Sex: F : 1950 5 Dictat ed By: Gildardo Quintanilla Attend ing Physic hien: MANDEEP SHORT Physic hien: JENNIFER GOODSON Exam Date: 2023 12:42 PM Exam Name: XR DEXA-H IPS PELVIS SPINE Admitt ing Diagno sis(es ): premen opausa l women, men <50 years, and childr en instea d of T-scor e WHO criter ia 4) <-2.0: below expect ed range/ low bone densit y for age, and a cause should be sought Electr onical ly Signed by: Gildardo Quintanilla at 2023 13:14: 15 PM Page [address] (Imaging) [address] [place], [address], 02/08/2024 16:53:59 03/02/20 24 03/01/2024 US, echoc ardio gram No observ ation record ed. [address] [facility] [address], [place], [address], 03/02/2024 12:55:19 10/26/19 25 10/25/2024 scree nato breas t erin, bilat [facility] [address] [place] [address] [phone] Patien t Name: CAROLYNN SHAH Access ion #: [id number] Sex: F : 1950 5 Dictat ed By: Neeru Jasso Attend ing Physic hien: JENNIFER GOODSON ng Physic hien: JENNIFER GOODSON Exam Date: 2024 10:28 AM Exam Name: MG SCRN BREAST ERIN BILAT Admitt ing Diagno sis(es ): PROCED URE: SCREEN ING MAMMOG FRANCISCO WITH TOMOSY NTHESI S REASON FOR EXAM: Screen ing mammo COMPAR CLINT: MG SCRN BREAST ERIN BILAT on DOS: 09/29/23 , MG SCRN BREAST ERIN BILAT 3D on DOS: , MG SCRN BREAST ERIN BILAT 3D on DOS: 1, SCREEN ING BREAST ERIN, BILAT 3D on DOS: 0, SCREEN ING BREAST ERIN, BILAT 3D on DOS: 9 TECHNI QUE: Bilate ral CC and MLO views obtain ed. Images were obtain ed using a Digita l Tomosy nthesi s Unit. Standa rd 2D and 3D Tomosy nthesi s images were review ed. This examin ation was analyz ed using Lunit Insigh t DBT/MM G in additi on to a radiol ogist review , an AI softwa re develo ped to enhanc e the effect ivenes s of breast cancer screen ing with mammog héctor. FINDIN GS: BREAST COMPOS ITION: B - There are scatte red areas of fibrog landul ar densit y. In the right breast , no asymme trical parenc hymal patter n, lisa ectura l distor tion, pleomo rphic microc alcifi cation s or masses . In the left breast , no asymme trical parenc hymal patter n, lisa ectura l distor tion, pleomo rphic microc alcifi cation s or masses . IMPRES VALERIANO: No findin gs of malign sidra. RECOMM ENDATI ON: Recomm end annual mammog francisco. Page 1 [facility] [address] [place] [address] Patien t Name: CAROLYNN SHAH Access ion #: [id number] Sex: F : 1950 5 Dictat ed By: Neeru Jasso Attend ing Physic hien: MANDEEP SHORT Physic hien: JENNIFER GOODSON Exam Date: 2024 10:28 AM Exam Name: MG SCRN BREAST ERIN BILAT Admitt ing Diagno sis(es ): ASSESS MENT: BIRADS : 1 - Negati ve Electr onical ly Signed by: Neeru Jasso at 2024 11:11: 24 AM Page 2 [email or web address] [facility] (Imaging) [address] [place], [place], [facility], 10/25/2024 13:55:00 Result Notes None recorded. Problems Name Problem SNOMED Code Status Onset Date Resolution Date Notes Provider Name and Address Organization Details Recorded Time Spinal stenosis 47785515 Active 2022 Not Available [facility] 4 04:37:41 Altered bowel function 45541244 Active 2022 Not Available [facility] 4 04:37:41 Urticaria 484018291 Active 2022 Not Available [facility] 4 04:37:40 Generaliz ed rash 553456331 Active 2022 Not Available [facility] 4 04:37:41 Rib pain 166555545 Active 2022 Not Available [facility] 4 04:37:41 Pain of left wrist 16644255415 9102 Active 2022 Not Available [facility] 4 04:37:41 Closed fracture of left wrist 79704116357 431403 Active 2022 Not Available [facility] 4 04:37:40 Closed fracture of distal end of radius 86098986 Active 2022 Not Available [facility] 4 04:37:40 Nausea 000035466 Active 2022 Not Available [facility] 4 04:37:41 Acute urinary tract infection 264395940 Active 2022 Not Available [facility] 4 04:37:41 Radiology result abnormal 705060485 Active 2022 Not Available [facility] 4 04:37:40 Liver enzymes level above reference range 689619009 Active 2022 Not Available [facility] 4 04:37:41 Abdominal pain 53785561 Active 2022 Not Available [facility] 4 04:37:40 Closed fracture of distal end of radius 85728440 Active 2022 Not Available [facility] 4 04:37:40 Pruritic rash 42292818 Active 2022 Not Available [facility] 4 04:37:41 Calculus of bile duct with obstructi on 8979301 Active 2022 Not Available [facility] 4 04:37:41 Disorder of skeletal system 76441855 Active 2022 Not Available [facility] 4 04:37:41 Vertigo 521984255 Active 2023 Not Available [facility] 4 04:37:41 Dysuria 73286872 Active 2023 Barbara Smith CMA null, [facility] 4 14:11:36 Chronic low back pain 277146966 Active 2023 Eliz Zapata CCM null, [facility] 4 11:27:28 Dyspnea on exertion 71035735 Active 2023 Analia Deleon null, [facility] 4 14:57:07 Intestina l malabsorp tion 602126765 Active 2023 Morgan Goodson MD [address] [facility], [facility] [address], [place], [address] , [facility] 4 14:51:19 Exocrine pancreati c insuffici ency 04899849 Active 2023 Morgan Goodson MD [address] [facility], [facility] [address], [place], [address] , [facility] 4 14:53:21 External hemorrhoi ds 30923260 Active 2023 Analia mendoza, [facility] 4 15:02:38 Cough 62815307 Active 2024 Barbara Smith CMA null, [facility] 5 12:17:15 Atypical chest pain 567159634 Active 2021 Not Available [facility] 4 04:37:40 Celluliti s of toe of right foot 17050593599 174937 Active 2019 Not Available [facility] 4 04:37:40 Disorder of trunk 839354777 Active Not Available [facility] 4 04:37:40 Hyperchol esterolem ia 69560332 Active 2019 Not Available [facility] 4 04:37:40 Acquired trigger finger 0752750 Active Not Available [facility] 4 04:37:40 Pain of left shoulder joint 71230584226 013946 Active 2021 Not Available [facility] 4 04:37:40 Backache 200072123 Completed Not Available [facility] 3 04:52:27 Closed fracture of base of neck of femur 8158806 Active Not Available [facility] 4 04:37:40 Senile osteoporo sis 67476855 Active 2021 Not Available [facility] 4 04:37:40 Periphera l venous insuffici ency 32352745 Active 2019 Not Available [facility] 4 04:37:40 Gastroeso phageal reflux disease 526047063 Active 2019 Not Available [facility] 4 04:37:40 Osteoarth ritis of knee 026739919 Active Not Available [facility] 4 04:37:40 Hip stiff 983775250 Active Not Available [facility] 4 04:37:40 Pure hyperchol esterolem ia 116429946 Active 2018 Not Available [facility] 4 04:37:40 Pure hyperglyc eridemia 957098475 Completed 201804/11/2019 Not Available [facility] 3 04:52:27 Eruption 048006796 Active 2021 Not Available [facility] 4 04:37:40 Low back pain 280159274 Active Not Available [facility] 4 04:37:40 Pain in toe 162222091 Active Not Available [facility] 4 04:37:41 Chest pain 15337367 Active 2021 Not Available [facility] 4 04:37:41 Ulcer of toe 229932725 Active 2019 Not Available [facility] 4 04:37:41 Enthesopa thy of hip region 72264743 Active Not Available [facility] 4 04:37:41 Knee pain Active Not Available [facility] 4 04:37:41 Osteopeni a 799964229 Completed Not Available [facility] 3 04:52:28 Type 2 diabetes mellitus without complicat ion 027318886 Active 2019 Not Available [facility] 4 04:37:41 Pain of toe of right foot 46169305262 9101 Active 2019 Not Available [facility] 4 04:37:41 Vitamin D deficienc y 66789626 Active 2021 Not Available [facility] 4 04:37:41 Chronic pain syndrome 873028473 Active 2018 Not Available [facility] 4 04:37:41 Osteoarth ritis 020006689 Active Not Available [facility] 4 04:37:41 Periphera l arterial occlusive disease 481890134 Active 2019 Not Available [facility] 4 04:37:41 Onychomyc osis 467061266 Completed Not Available [facility] 3 04:52:29 Swelling of lower leg 637148944 Active 2021 Not Available [facility] 4 04:37:41 Pain of left knee joint 57139986274 4107 Active 2021 Not Available [facility] 4 04:37:41 Hip pain 87909245 Active Not Available [facility] 4 04:37:41 Dysuria 51921636 Completed JOY Demarco, [facility] 4 14:11:37 Fracture of neck of femur 7689625 Active Not Available [facility] 4 04:37:41 Essential hypertens ion 14178007 Active Not Available [facility] 4 04:37:41 Osteoporo sis 56995275 Active Not Available [facility] 4 04:37:41 Urinary tract infectiou s disease 42723156 Completed Not Available [facility] 3 04:52:31 Diabetes mellitus 62466158 Completed Not Available [facility] 3 04:52:31 Maxxiou s anemia 14274418 Active Not Available [facility] 4 04:37:41 COVID-19 284697445 Active 2021 Not Available [facility] 4 04:37:41 Pain in limb 02893883 Active Not Available [facility] 4 04:37:41 Notes:back problems, use of NSAIDS Problem Notes None recorded. Procedures Surgical History Date Name Laterality Status Provider Name and Address Organization Details Recorded Time 4 Chronic care management services completed Eliz Zapata [facility] [employer] 03/17/2024 11:26:36 4 Chronic care management services completed Eliz Zapata [facility] [employer] [facility] 02/14/2024 16:01:45 4 Chronic care management services completed Eliz Zapata [facility] [employer] [facility] [employer] [facility] 01/07/2024 10:58:10 4 Medicare Wellness CPT Code, subsequent completed Oksana Nino RN [facility] [employer] 09/27/2023 14:57:01 9 Most Recent Bone Density completed Not Available [facility] 10/21/2022 04:43:36 Imaging Results Imaging Date Name Status LastModified by Organization Details LastModified Time 02/08/2024 DEXA, axial skeleton completed [address] (Imaging) [address] [place], [address], 02/08/2024 16:53:59 03/01/2024 US, echocardiogram completed [address] [facility] [address], [place], [address], 03/02/2024 12:55:19 10/25/2024 screening breast erin, bilat completed [address] (Imaging) [address] [place], [address], 10/25/2024 13:55:00 Procedure Notes None recorded. Medical Equipment None Reported. Allergies Allergen ID Allergen Name Allergen Category Reaction Reaction Severity Criticality Documentation Date Start Date Code Code System Note Provider Name and Address Organization Details Recorded Time 8092 Substance with sulfonami de structure and antibacte rial mechanism of action (substanc e) medicatio n hives Not available Not available 10/21/2022 32028 8003 SNOMED Not Available [facility] 3 05:03:58 8093 adhesive tape environme nt,medica tion Not available Not available Not available 10/21/2022 23220 UNK Not Available [facility] 3 05:03:58 Medications Name Sig Start Date Stop Date Status Note LastModified by Organization Details LastModified Time carisopro dol 350 mg tablet TAKE 1 TABLET BY MOUTH TWICE A DAY active Not Available Not Available No t Available celecoxib 200 mg capsule TAKE 1 CAPSULE BY MOUTH EVERY DAY active Not Available Not Available No t Available cyclobenz aprine 10 mg tablet 05/24 completed Not Available Not Available Not Available amoxicill in 500 mg capsule TK FOUR CS PO 1 HOUR B DAPP 01/06 completed Not Available Not Available Not Available vitamin A 2,400 mcg capsule Take 1 capsule every day by oral route. 08/02 completed Not Available Not Available Not Available prednison e 10 mg tablet Take by oral route. 06/16 completed Not Available Not Available Not Available nitrofura ntoin macrocrys jose manuel 50 mg capsule 02/18 completed Not Available Not Available Not Available gabapenti n 600 mg tablet TAKE 1 TABLET BY MOUTH EVERY DAY active Not Available Not Available No t Available atorvasta tin 20 mg tablet TAKE 1 TABLET BY MOUTH DAILY active Not Available Not Available No t Available Carafate 100 mg/mL oral suspensio n 10/24 completed Not Available Not Available Not Available clindamyc in HCl 300 mg capsule TAKE 1 CAPSULE BY MOUTH EVERY 6 HOURS active Not Available Not Available No t Available BD Insulin Syringe 1 mL 25 x 1 USE DIRECTED TO INJECT VITAMIN B12 MONTHLY 10/24 completed Not Available Not Available Not Available azithromy sam 250 mg tablet TAKE 2 TABLETS (500 MG) BY ORAL ROUTE ONCE DAILY FOR 1 DAY THEN 1 TABLET (250 MG) BY ORAL ROUTE ONCE DAILY FOR 4 DAYS active Not Available Not Available No t Available fluconazo le 150 mg tablet TAKE 1 TABLET BY MOUTH EVERY DAY active Not Available Not Available No t Available benzonata te 200 mg capsule Take 1 capsule 3 times a day by oral route. 2024 active Not Available Not Available Not Avai lable valacyclo vir 1 gram tablet TAKE 1 TABLET BY MOUTH THREE TIMES DAILY FOR 7 DAYS 01/06 completed Not Available Not Available Not Available Lotrisone 1 %-0.05 % topical cream APPLY TO THE AFFECTED AND SURROUND ING AREAS OF SKIN BY TOPICAL ROUTE 2 TIMES PER DAY IN THE MORNING AND EVENING FOR 2 WEEKS 2019 active Not Available Not Available Not Avai lable hydrocodo ne 5 mg-acetam inophen 325 mg tablet TK 1 T PO Q 8 H NEEDED 08/08 completed Not Available Not Available Not Available vitamin G04-lctnz in B1 1,000 mcg-100 mg/mL injection solution Take by injectio n route. 10/20 completed One injectio n per month Not Available Not Available Not Available meloxicam 15 mg tablet Take 1 tablet every day by oral route. 01/06 completed Not Available Not Available Not Available ondansetr on HCl 4 mg tablet TAKE 1 TABLET BY MOUTH EVERY 8 HOURS 01/06 completed Not Available Not Available Not Available alendrona te 70 mg tablet TAKE 1 TABLET BY MOUTH EVERY WEEK active Not Available Not Available No t Available fluoroura cil 5 % topical cream APPLY TO RIGHT CHEEK TWICE DAILY FOR 2 WEEKS 01/06 completed Not Available Not Available Not Available Doc-Q-Lac e 100 mg capsule TK ONE C PO BID active Not Available Not Available No t Available penicilli n V potassium 500 mg tablet TAKE 1 TABLET BY MOUTH FOUR TIMES DAILY UNTIL ALL GONE 08/20 completed Not Available Not Available Not Available ciproflox acin 500 mg tablet TAKE 1 TABLET TWICE A DAY FOR 7 DAYS. 08/20 completed Not Available Not Available Not Available hydrocodo ne 10 mg-acetam inophen 325 mg tablet TAKE 1 TABLET BY MOUTH FOUR TIMES DAILY FOR OSTEOART HRITIS active Not Available Not Available No t Available tramadol 50 mg tablet TK 1-2 TS PO QHS PRN active Not Available Not Available No t Available amoxicill in 500 mg tablet TAKE 4 TABLETS BY MOUTH 1 HOUR BEFORE DENTAL PROCEDUR E active Not Available Not Available No t Available pantopraz ole 20 mg tablet,de layed release TAKE 1 TABLET BY MOUTH EVERY DAY 10/24 completed Not Available Not Available Not Available prednison e 10 mg tablets in a dose pack Take 1 tab by mouth, 3 times a day for 3 daysTake 1 tab by mouth 2 times a day for 2 daysTake 1 tab by mouth once a day for 1 day 06/16 completed Not Available Not Available Not Available meloxicam 7.5 mg tablet active Not Available Not Available Not Available oxycodone -acetamin ophen 5 mg-325 mg tablet TK 2 TS PO Q 4 H PRF MODERATE PAIN 06/16 completed Not Available Not Available Not Available terbinafi ne HCl 250 mg tablet Take 1 tablet every day by oral route for 30 days. 07/21 completed Not Available Not Available Not Available alprazola m 0.5 mg tablet TAKE 1 TO 2 TABLETS BY MOUTH 1 HOUR BEFORE PROCEDUR E 05/24 completed Not Available Not Available Not Available hydrocodo ne 10 mg-acetam inophen 500 mg tablet TK 1 TO 2 TS PO Q 6 H PRN P active Not Available Not Available No t Available ciproflox acin 0.3 % eye drops 11/06 completed Not Available Not Available Not Available Kenalog 10 mg/mL suspensio n for injection In office injectio n administ ered by the provider 06/16 completed ND: [id number] 12-10 Not Available Not Available Not Available lorazepam 2 mg tablet active Not Available Not Available Not Available meclizine 25 mg tablet TAKE 1 TABLET BY MOUTH THREE TIMES DAILY active Not Available Not Available No t Available phenazopy ridine 100 mg tablet TAKE 2 TABLETS BY MOUTH 3 TIMES A DAY 09/23 completed Not Available Not Available Not Available Vitamin C 100 mg tablet Take 1 tablet every day by oral route. 01/06 completed Not Available Not Available Not Available hydrocodo ne 7.5 mg-acetam inophen 325 mg tablet TAKE 1 TABLET EVERY 6 HOURS NEEDED active Not Available Not Available No t Available cephalexi n 500 mg capsule TAKE ONE CAPSULE BY MOUTH FOUR TIMES DAILY 05/29 completed Not Available Not Available Not Available pantopraz ole 40 mg tablet,de layed release Take 1 tablet every day by oral route. 04/03 completed Not Available Not Available Not Available cyanocoba douglas (vit B-12) 1,000 mcg/mL injection solution INJECT IN THE MUSCLE 1ML EVERY MONTH active Not Available Not Available No t Available ferrous sulfate 325 mg (65 mg iron) tablet TAKE ONE TABLET DAILY 07/20 completed Not Available Not Available Not Available nystatin 100,000 unit/gram topical cream APPLY TO THE AFFECTED AREA(S) BY TOPICAL ROUTE 2 TIMES PER DAY 06/16 completed Not Available Not Available Not Available promethaz ine 25 mg tablet TK 1 T PO Q 4 H PRN NV active Not Available Not Available No t Available omeprazol e 20 mg capsule,d elayed release Take 1 capsule every day by oral route. 2021 active Not Available Not Available Not Avai lable Macrodant in 100 mg capsule one twice a day 04/03 completed Not Available Not Available Not Available diclofena c sodium 75 mg tablet,de layed release 03/24 completed Not Available Not Available Not Available etodolac 400 mg tablet Take 1 tablet twice a day by oral route for 30 days. active Not Available Not Available No t Available monteluka st 10 mg tablet Take 1 tablet every day by oral route. 12/16 completed Not Available Not Available Not Available hydrocodo ne 5 mg-acetam inophen 500 mg tablet TAKE ONE TO TWO TS PO QID PRN active Not Available Not Available No t Available lisinopri l 5 mg tablet TAKE 1 TABLET BY MOUTH EVERY DAY active Not Available Not Available No t Available mupirocin 2 % topical ointment APPLY A SMALL AMOUNT TO THE AFFECTED AREA BY TOPICAL ROUTE 3 TIMES PER DAY 02/02 completed Not Available Not Available Not Available furosemid e 20 mg tablet TAKE 1 TABLET BY MOUTH DAILY NEEDED active Not Available Not Available No t Available gabapenti n 100 mg capsule Take 1 capsule 3 times a day by oral route. active Not Available Not Available No t Available clobetaso l 0.05 % topical ointment apply a thin layer to the affected area by topical route 2 tomes a day active Not Available Not Available No t Available lorazepam 1 mg tablet 05/24 completed Not Available Not Available Not Available oxycodone -acetamin ophen 7.5 mg-325 mg tablet 12/30 completed Not Available Not Available Not Available methylpre dnisolone 4 mg tablets in a dose pack FOLLOW PACKAGE DIRECTIO NS 05/24 completed Not Available Not Available Not Available Cipro 250 mg tablet Take 1 tablet every 12 hours by oral route. 04/03 completed Not Available Not Available Not Available ondansetr on 4 mg disintegr ating tablet DISSOLVE 2 TABLETS ON THE TONGUE TWICE DAILY 01/06 completed Not Available Not Available Not Available cefdinir 300 mg capsule Take 1 capsule every 12 hours by oral route. active Not Available Not Available No t Available fluticaso ne propionat e 50 mcg/actua tion nasal spray,misha pension Inhale 2 sprays every day by intranas al route. 06/16 completed Not Available Not Available Not Available Unisom (doxylami ne) 25 mg tablet Take 1 tablet every day by oral route at bedtime. 03/24 completed Not Available Not Available Not Available Augmentin 500 mg-125 mg tablet Take 1 tablet every 12 hours by oral route as directed for 10 days. 10/24 completed Not Available Not Available Not Available naproxen 500 mg tablet TK 1 T PO BID PRN active Not Available Not Available No t Available diazepam 5 mg tablet 02/02 completed Not Available Not Available Not Available amoxicill in 875 mg-potass ium clavulana te 125 mg tablet TAKE 1 TABLET BY MOUTH EVERY 12 HOURS FOR 10 DAYS 05/24 completed Not Available Not Available Not Available oxycodone 5 mg tablet 11/06 completed Not Available Not Available Not Available Bactrim DS 800 mg-160 mg tablet Take 1 tablet every 12 hours by oral route. 07/21 completed Not Available Not Available Not Available risedrona te 35 mg tablet Take 1 tablet every week by oral route. 01/28 completed Not Available Not Available Not Available syringe with needle 1 mL 25 gauge x 1 USE DIRECTED . TO INJECT VITAMIN B12 MONTHLY 12/30 completed Not Available Not Available Not Available metaxalon e 800 mg tablet TK 1 T PO TID PRN active Not Available Not Available No t Available Vitamin D3 25 mcg (1,000 unit) tablet Take 1 tablet every day by oral route. 08/02 completed Not Available Not Available Not Available Premarin 0.625 mg/gram vaginal cream INSERT 0.5G VAGINALL Y EVERY OTHER DAY FOR THE FIRST TWO WEEKS, THEN CONTINUE TWICE WEEKLY THEREAFT ER active Not Available Not Available No t Available Senna Plus 8.6 mg-50 mg tablet TAKE 2 TABLETS BY MOUTH TWICE A DAY 10/24 completed Not Available Not Available Not Available melatonin 1 mg tablet Take 1 tablet every day by oral route at bedtime. 2020 active Not Available Not Available Not Avai lable Multivita min 50 Plus tablet Take 4 tablets every day by oral route. 2021 active Not Available Not Available Not Avai lable nitrofura ntoin monohydra te/macroc rystals 100 mg capsule TAKE 1 CAPSULE BY MOUTH TWICE DAILY active Not Available Not Available No t Available melatonin 10/24 completed Not Available Not Available Not Available Vitamin C 240 MG CHEWABLE 2 EVERY DAY 08/02 completed Not Available Not Available Not Available potassium acetate 10/24 completed Not Available Not Available Not Available biotin 02/18 completed Not Available Not Available Not Available Multiple Vitamins TAKE ONE DAILY CENTRUM SILVER 02/18 completed Not Available Not Available Not Available Tylenol 10/24 completed Not Available Not Available Not Available potassium 02/18 completed Not Available Not Available Not Available Os-Bong 500 + D3 DAILY 02/18 completed Not Available Not Available Not Available collagen (bovine) 02/18 completed Not Available Not Available Not Available lidocaine (PF) 10 mg/mL (1 %) injection solution In office injectio n administ ered by the provider 10/[address] [facility] [facility]: [phone] 6-17 Not Available Not Available Not Available carisopro dol 250 mg tablet TAKE 1 TABLET BY MOUTH TWICE A DAY NEEDED active Not Available Not Available No t Available melatonin 5 mg tablet Take 1 tablet every day by oral route at bedtime. 08/02 completed Not Available Not Available Not Available vitamin E (dl, acetate) 180 mg (400 unit) capsule Take 1 capsule every day by oral route. 08/02 completed Not Available Not Available Not Available Prolia 60 mg/mL subcutane ous syringe inject 1 cc/60 mg of prolia subcutan eously once every 6 months 09/19 completed Not Available Not Available Not Available Suprep Bowel Prep Kit 17.5 gram-3.13 gram-1.6 gram oral solution active Not Available Not Available Not Available Slow-Mag 71.5 mg tablet,de layed release Take 1 tablet every day by oral route. active Not Available Not Available No t Available Xarelto 10 mg tablet 06/16 completed Not Available Not Available Not Available ropivacai ne (PF) 5 mg/mL (0.5 %) injection solution Take 20 mg by injectio n route. 06/16 completed Not Available Not Available Not Available Xarelto 15 mg tablet Take 1 tablet twice a day by oral route. 09/19 completed Not Available Not Available Not Available Os-Bong 500 + D3 500 mg-15 mcg (600 unit) tablet Take 1 tablet every day by oral route. 2021 active Not Available Not Available Not Avai lable vitamin E (dl, acetate) 90 mg (200 unit) capsule Take 1 capsule every day by oral route. 01/06 completed Not Available Not Available Not Available Osteo Bi-Flex 250 mg-200 mg tablet Take 1 tablet twice a day by oral route. 08/02 completed Not Available Not Available Not Available Eliquis 2.5 mg tablet 11/06 completed Not Available Not Available Not Available Os-Bong + D3 ONCE DAILY 08/02 completed Not Available Not Available Not Available Centrum Silver Women ONCE DAILY 09/28 completed Not Available Not Available Not Available Paxlovid 300 mg (150 mg x 2)-100 mg tablets in a dose pack 02/18 completed Not Available Not Available Not Available Paxlovid 150 mg-100 mg tablets in a dose pack (Renal Dose) Take by oral route. Take two 150 mg and one 100 mg tablet twice daily for five days (Total of three tablets twice daily) 02/18 completed Not Available Not Available Not Available Vitals Date Recorded Body height Provider Name an d Address Organization Details Last Updated DateTime 01/07/2024 162.56 cm Eliz Zapata [facility] [employer] [facility] 01/07/2024 10:53:01 Date Recorded Body height Body weight Heart rate Body temperature Oxygen saturation Oxygen saturation in Arterial blood by Pulse oximetry Systolic blood pressure Diastolic blood pressure Provider Name and Address Organization Details Last Updated DateTime 162.56 cm 86505.1 5 g 72 /min 97.2 [degF] 98 % 98 % 116 mm[Hg] 70 mm[Hg] Tisha Ferraro [facility] [employer] [facility] 4 14:27:56 Date Recorded Body height Provider Name an d Address Organization Details Last Updated DateTime 02/14/2024 162.56 cm Eliz Zapata [facility] [employer] [facility] 02/14/2024 15:59:47 Date Recorded Body height Provider Name an d Address Organization Details Last Updated DateTime 03/17/2024 162.56 cm Elizpayal Zapata [facility] [employer] [facility] 03/17/2024 11:24:15 Date Recorded Body height Body mass index (BMI) Body weight Heart rate Body temperature Oxygen saturation Oxygen saturation in Arterial blood by Pulse oximetry Systolic blood pressure Diastolic blood pressure Provider Name and Address Organization Details Last Updated DateTime 162.56 cm 28.7 kg/m2 79324.9 3 g 83 /min 97 [degF] 97 % 97 % 120 mm[Hg] 72 mm[Hg] Tisha Ferraro Rosana [facility] [employer] [facility] 14:35:28 Social History Question Answer Notes LastModified by Organization Details LastModified Time Tobacco Smoking Status Never Smoker Not Available [employer] 10/21/2022 04:21:38 Do You Have An Advance Directive? Yes [id number] Information not available 10/21/2022 What Is Your Level Of Alcohol Consumption? Occasional [id number] Information not available 10/21/2022 Are You Blind Or Do You Have Difficulty Seeing? No [id number] Information not available 10/21/2022 In The 14 Days Before Symptom Onset, Have You Had Close Contact With A Laboratory-confi rmed COVID-19 While That Case Was Ill? No MIGRATION.0301 [id number] Information not available 10/21/2022 In The 14 Days Before Symptom Onset, Have You Had Close Contact With A Person Who Is Under Investigation For COVID-19 While That Person Was Ill? No MIGRATION.0301 [id number] Information not available 10/21/2022 Are You Deaf Or Do You Have Serious Difficulty Hearing? No MIGRATION.0301 [id number] Information not available 10/21/2022 What Type Of Diet Are You Following? 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 No MIGRATION.0301 [id number] Information not available 10/21/2022 What Is The Fluoride Status Of Your Home? Unknown MIGRATION.0301 183293 Information not available 10/21/2022 Are There Any Guns Present In Your Home? Yes MIGRATION.0301 757147 Information not available 10/21/2022 Do You Use Insect Repellent Routinely? Yes MIGRATION.0301 [id number] Information not available 10/21/2022 Where Do You Live? SingleLevelHouse With Basement MIGRATION.0301 [id number] Information not available 10/21/2022 Guns Present In The Home? Yes [email or web address] Information not available 09/27/2023 Are You Able To Care For Yourself? Yes [email or web address] Information not available 09/27/2023 Are You Blind Or Do Yo Have Difficulty Seeing? No [email or web address] Information not available 09/27/2023 Are You Deaf Or Do You Have Serious Difficulty Hearing? No [email or web address] Information not available 09/27/2023 Live Alone Of With Others? With Others [email or web address] Information not available 09/27/2023 Do You Have A Medical Power Of Principal Librarian? Yes [email or web address] Information not available 09/27/2023 What Was The Date Of Your Most Recent Tobacco Screening? 09/27/2023 [email or web address] Information not available 09/27/2023 Do You Have Any Pets? No [email or web address] Information not available 09/27/2023 What Is Your Relationship Status? MIGRATION.0301 [id number] Information not available 10/21/2022 Do You Use Your Seat Belt Or Car Seat Routinely? Yes MIGRATION.0301 [id number] Information not available 10/21/2022 Do You Have Smoke And Carbon Monoxide Detectors In Your Home? Yes MIGRATION.0301 755205 Information not available 10/21/2022 Are You Passively Exposed To Smoke? No [email or web address] Information not available 09/27/2023 Are There Any Smokers In Your House? No [email or web address] Information not available 09/27/2023 Do You Feel Stressed (tense, Restless, Nervous, Or Anxious, Or Unable To Sleep At Night)? [id number] MIGRATION.0301 777938 Information not available 10/21/2022 Do You Use Sunscreen Routinely? Yes MIGRATION.0301 [id number] Information not available 10/21/2022 Has Tobacco Cessation Counseling Been Provided? No MIGRATION.0301 345405 Information not available 10/21/2022 Have You Recently Traveled Abroad? No MIGRATION.0301 414306 Information not available 10/21/2022 Do You Have Any Dietary Restrictions? No MIGRATION.0301 959551 Information not available 10/21/2022 Do You Or Have You Ever Used Any Other Forms Of Tobacco Or Nicotine? No MIGRATION.0301 900628 Information not available 10/21/2022 Sex: Unknown Functional Status Question Answer Note LastModified by Organizat ion Details LastModified Time Do you have difficulty walking or climbing stairs? No MIGRATION.73665 42077 Information not available 10/21/2022 Do you have transportation difficulties? No MIGRATION.35942 28803 Information not available 10/21/2022 Are you able to walk? YESASSIST Patient uses a cane when she is out of the house. MIGRATION.25767 08947 Information not available 10/21/2022 Do you have difficulty doing errands alone? No MIGRATION.92256 05271 Information not available 10/21/2022 Are you able to care for yourself? Yes MIGRATION.07333 66922 Information not available 10/21/2022 Do you have difficulty dressing or bathing? No MIGRATION.40486 25827 Information not available 10/21/2022 What is your exercise level? Occasional exercise bike MIGRATION.19299 55295 Information not available 10/21/2022 Mental Status Question Answer Note LastModified by Organizat ion Details LastModified Time Do you have difficulty concentrating, remembering or making decisions? No MIGRATION.[id number] 6 Information not available 10/21/2022 Family History Relationship Description Onset Age of this Age Resolved Age Notes LastModified by Organization Details LastModified Time Mother Family history of malignant neoplasm [email or web address] Not available 01/21 13:39:59 Notes:Mother Living 91 years old Father 80 years old 1 Brothers 1 Living 4 Sisters 4 Living Mother CAD, CA Breast, CKD 3 Father Hx ASHD, Dementia Brother Hx ASHD (1) Sister CA colon (1) Medical History Condition Response NERVE DISEASE N BLINDNESS N RHEUMATIC FEVER N KIDNEY STONES N BLADDER PROBLEMS N OTHER # 1 N POLIO N LUNG DISEASE/DISORDER N RADIATION / CHEMOTHERAPY N COPD N Other # 2 N BLOOD DISEASES N SURGERY N EAR OR HEARING PROBLEMS N MUMPS N BOWEL PROBLEMS N DEPRESSION (INCLUDING POST ) N STROKE/TIA N ULCERS N BENIGN PROSTATIC HYPERPLASIA N MEASLES N MYOCARDIAL INFARCTION N OBESITY N GERD/NAUSEA N ANEURYSM N URINARY/BLADDER/KIDNEY PROBLEMS Y INPATIENT PSYCH CARE N CORONARY ARTERY DISEASE (CAD) N ADDICTION CONCERNS N ENDOMETRIOSIS N Impotence N USE OF BLOOD THINNERS N SKIN PROBLEMS N GASTROINTESTINAL DISORDER N PERIPHERAL VASCULAR DISEASE N MUSCLE,JOINT OR BONE PROBLEMS N GASTROINTESTINAL BLEEDING N BLOOD CLOTS N ASTHMA N CATARACTS N ERECTILE DYSFUNCTION N VARICOSITIES N GI PROBLEMS N Low Testosterone N INFERTILITY N AIDS/HIV N LIVER DISEASE N MALE HYPOGONADISM N HYPERTENSION Y Deficiency N ANXIETY DISORDER N BLOOD TRANSFUSION N ANEMIA/BLOOD DISORDER N CHRONIC EAR INFECTIONS N BRONCHITIS N TUBERCULOSIS N GLAUCOMA N DIVERTICULITIS N SLEEP APNEA N CHICKENPOX N INFECTIOUS DISEASE N HEART ARRHYTHMIA N PROSTATE N INSOMNIA N HIGH CHOLESTEROL / HYPERLIPIDEMIA N HYPERTHYROIDISM N EYE PROBLEMS N NEUROLOGICAL PROBLEMS N EDEMA N CHRONIC PAIN SYNDROME N HYPOTHYROIDISM N CAROTID BLOCKAGE N CONSTIPATION N BACK / NECK PROBLEMS N HAVE YOU BEEN HOSPITALIZED OR SEEN IN [facility] IN THE PAST YEAR ? N ATHEROSCLEROSIS N BREAST PROBLEMS N DIALYSIS N ECZEMA N OSTEOPOROSIS Y ARTHRITIS Y NO SIGNIFICANT PAST MEDICAL HISTORY N APPENDICITIS N DIABETES, TYPE N BAD TEETH N ENT N HEARTBURN / REFLUX N AUTISM SPECTRUM DISORDER (ASD) N HEPATITIS / LIVER DISEASE N PULMONARY DISEASE N GOUT N SLEEP DISORDER N ALZHEIMER'S DISEASE N Brain Problems N HERPES N DEMENTIA N HEADACHES/MIGRAINES N SEIZURES/EPILEPSY N VASCULAR DISEASE N PACEMAKER N Blood Disorder N DIZZINESS N HEART DISEASE/HEART PROBLEMS N KIDNEY DISEASE N MULTIPLE SCLEROSIS N CARDIAC ARRHYTHMIA N CANCER: SPECIFY N ANESTHESIA COMPLICATIONS N ATRIAL FIBRILLATION N Gall Stones N PULMONARY EMBOLISM N AUTOIMMUNE DISEASE N Gynecological History Statement/Question Response Date of Last Mammogram 05/08/2020 Date of Last Colonoscopy Most Recent Bone Density 07/13/2019 Obstetrics History GPAL:G 0 P 0 0 0 0 Immunizations Vaccine Type Date Status Note Provider Nam e and Address Organization Details Recorded Time COVID-19, mRNA, LNP-S, PF, 100 mcg/0.5mL dose or 50 mcg/0.25mL dose 1 completed RUDDY Novoa, [facility] [employer] [facility] 01/07/2024 10:53:28 Influenza, high-dose, quadrivalent, PF 3 completed Morgan Goodson MD [address] [place] [address], [id number], [facility] [employer] [facility] 05/24/2023 15:03:31 Influenza, split virus, trivalent, preservative 6 completed Not Available [facility] 08/31/2023 04:37:42 Influenza, high-dose, trivalent, PF 5 completed Eliz Zapata CCM null, [place] [employer] [facility] [employer] [facility] 01/07/2024 10:53:28 COVID-19, mRNA, LNP-S, PF, 100 mcg/0.5mL dose or 50 mcg/0.25mL dose 1 completed Eliz Zapata CCM null, [employer] [facility] 01/07/2024 10:53:28 Influenza, split virus, quadrivalent, preservative 1 completed Not Available Critical [facility] hospital 08/31/2023 04:37:42 COVID-19, mRNA, LNP-S, PF, 100 mcg/0.5mL dose or 50 mcg/0.25mL dose 1 completed RUDDY Novoa, [facility] [employer] [facility] 01/07/2024 10:53:28 COVID-19, mRNA, LNP-S, PF, 100 mcg/0.5mL dose or 50 mcg/0.25mL dose 1 completed RUDDY Novoa, [place] [facility] [employer] [facility] 01/07/2024 10:53:28 zoster, unspecified formulation 9 completed Not Available [facility] 08/31/2023 04:37:42 Influenza, split virus, trivalent, preservative 6 completed Not Available [facility] 08/31/2023 04:37:42 Influenza, high-dose, trivalent, PF 5 completed Not Available [facility] 08/31/2023 04:37:42 Influenza, high-dose, trivalent, PF 3 completed Eliz Zapata CCM null, [place] [employer] [facility] [employer] [facility] 01/07/2024 10:53:28 Influenza, high-dose, quadrivalent, PF 2 completed Not Available [facility] 08/31/2023 04:37:42 pneumococcal polysaccharide PPV23 9 completed Not Available [facility] 08/31/2023 04:37:42 Td (adult), 5 Lf tetanus toxoid, preservative free, adsorbed 5 completed Not Available Critical access hospital 08/31/2023 04:37:42 Pneumococcal conjugate PCV 13 5 completed Eliz Zapata CCM null, [place] [employer] [facility] [employer] [facility] 01/07/2024 10:53:28 Influenza, high-dose, trivalent, PF 4 completed Morgan Goodson MD [address] [facility], [facility] [address], [place], [address], [facility] [employer] [facility] 05/29/2024 15:35:51 Pneumococcal conjugate PCV20, polysaccharide IHG163 conjugate, adjuvant, PF 4 completed Alyssa mendoza, [employer] [facility] [employer] [facility] 06/01/2024 12:12:09 Past Encounters Encounter ID Performer Location Encounter Start Date Encounter Closed Date Diagnosis/Indication Diagnosis SNOMED-CT Code Diagnosis ICD10 Code Diagnosis Note [id number] [facility] Internal Med [facility] [address] [facility] [address] [place] [address] 10/24/2020 00:00:00 10/24/2020 12:22:17 [id number] _AMY_Marco IGRATION_ DEFAULT_1 _1 , 12/24/2020 00:00:00 12/24/2020 15:38:55 [id number] [facility] [address] [place] [address] 01/28/2021 00:00:00 01/28/2021 14:08:54 [id number] [facility] [place] [address] [facility] [address] [place] [address] 02/19/2021 00:00:00 02/19/2021 16:18:06 [id number] [facility] [address] [place] [address] 02/25/2021 00:00:00 02/25/2021 16:08:54 [id number] [facility] [address] [place] [address] 03/04/2021 00:00:00 03/04/2021 16:23:38 [id number] [facility] [address] [place] [address] 04/01/2021 00:00:00 04/01/2021 17:26:14 [id number] [facility] [address] [place] [address] 04/29/2021 00:00:00 04/29/2021 16:27:59 [id number] [facility] [address] [place] [address] 07/01/2021 00:00:00 07/01/2021 15:04:32 [id number] [facility] [place] [address] [facility] [address] [place] [address] 08/20/2021 00:00:00 08/20/2021 15:37:16 [id number] [facility] [address] [place] [address] 12/30/2021 00:00:00 12/30/2021 14:39:22 [id number] [facility] [address] [place] [address] [address] 02/18/2022 00:00:00 02/18/2022 15:40:08 [id number] [facility] [address] [facility] [address] 03/12/2022 00:00:00 03/12/2022 11:29:01 [id number] [facility] [address] [place] [address] 04/09/2022 00:00:00 04/09/2022 14:27:16 [id number] [facility] [address] [facility] , [place] [address] 06/16/2022 00:00:00 06/16/2022 15:53:44 [id number] [facility] [place] [address] [place] [address] [address] 08/19/2022 00:00:00 08/19/2022 15:36:32 [id number] NIMISHA Herbert [facility] [address] [place] [address] 02/02/2023 13:16:48 02/02/2023 15:02:09 Closed fracture of distal end of radius 64859462 S52.502A [id number] Morgan Goodson MD [facility] [place] [address] [place] [address] [address] 02/17/2023 15:10:29 02/17/2023 15:41:51 Altered bowel function 26722080 R19.4 Essential hypertension 65571476 I10 Gastroesop hageal reflux disease 135334649 K21.9 Hypercholesterolemia 136 08197 E78.00 Closed fra cture of left wrist 4930832787 0271431 S62.92XA [id number] NIMISHA Herbert [facility] [address] [place] [address] 02/24/2023 15:02:39 02/24/2023 15:41:01 Closed fracture of distal end of radius 06844582 S52.502D [id number] Steve Crook MD [facility]o [place] [address] [place] [address] 03/24/2023 13:51:10 03/24/2023 14:09:55 Closed fracture of distal end of radius 70386844 S52.502D [id number] Morgan Goodson MD [facility] Internal Med [facility] [address] [address] 05/24/2023 14:27:25 05/24/2023 15:07:24 Administration of influenza vaccine 52621560 Z23 Essential hypertension 12181383 I10 Gastroesop hageal reflux disease 610943275 K21.9 Hypercholesterolemia 136 31671 E78.00 Osteoporosis 09631051 M8 1.0 Calculus o f bile duct with obstruction 7589138 K80.37 [id number] Morgan Goodson MD [facility] Internal Med [facility] [address] [address] 09/27/2023 14:24:09 09/27/2023 15:38:44 Adult health examination 839507475 Z00.00 Screening for disorder 625810759 Z13.9 Chronic pain syndrome 37 8216741 G89.4 Essential hypertension 64020220 I10 Hypercholesterolemia 136 50489 E78.00 Gastroesop hageal reflux disease 799557725 K21.9 Type 2 leonid betes mellitus without complication 037425690 E11.9 Long-term current use of opiate analgesic drug 7684683039 31230 Z79.747 [id number] Morgan Goodson MD [facility] Internal Med [facility] [address] [address] 01/07/2024 10:49:31 01/07/2024 14:16:53 Essential hypertension 71661169 I10 Hypercholesterolemia 136 41562 E78.5 Chronic low back pain 27 5897620 M54.50 Osteoarthritis 831889058 M17.9 [id number] Morgan Goodson MD [facility] Internal Med [facility] [address] [address] 01/24/2024 14:15:31 01/24/2024 14:53:03 Essential hypertension 16950239 I10 Hypercholesterolemia 136 95296 E78.5 Peripheral venous insufficiency 87042371 I87.2 Senile osteoporosis 1804 0001 M81.0 [id number] Morgan Goodson MD [facility] Internal Med [facility] [address] [address] 02/14/2024 15:57:46 02/17/2024 11:49:49 Type 2 diabetes mellitus without complication 534906876 E11.9 Hypercholesterolemia 136 68291 E78.5 Essential hypertension 56134360 I10 Peripheral venous insufficiency 54920470 I87.2 [id number] Morgan Goodson MD [facility] Internal Med [facility] [address] [place] [address] 03/17/2024 11:07:35 03/20/2024 10:21:31 Essential hypertension 54351941 I10 Acute urin yuliet tract infection 163097812 N39.0 Osteoarthritis 374828030 M17.9 Hypercholesterolemia 136 68061 E78.5 [id number] Morgan Goodson MD [facility] Internal Med [facility] [address] [address] 05/29/2024 14:25:54 05/29/2024 15:01:40 Essential hypertension 32237210 I10 Gastroesop hageal reflux disease 563623900 K21.9 Hypercholesterolemia 136 87883 E78.5 Chronic pain syndrome 37 0503746 G89.4 Intestinal malabsorption 580478509 K90.9 Exocrine p ancreatic insufficiency 96500817 K86.81 Goals Section Goal Description Progress Status Start Date LastModified by Organization Details LastModified Time Adequate Sleep Achieves adequate, well-rested sleep with minimal disruption Progressing active 2023 Eliz Zapata CCM Information not available 02/14/2024 20:14:26 Exercise Regularl y Follows a regular exercise regimen or instructed exercise plan as per care team recommendation (s) Progressing active 2023 Eliz Zapata CCM Information not available 02/14/2024 20:14:24 Quality of Life Reports satisfaction with quality of life NoChange active 2023 Eliz Zapata CCM Information not available 01/07/2024 16:10:19 Medicati on Regimen Follows medication regimen as per care team recommendation (s) Progressing active 2023 Eliz Zapata CCM Information not available 02/14/2024 20:14:28 Mobility Maintains or improves baseline mobility and/or moves independently Progressing active 2023 Eliz Zapata CCM Information not available 02/14/2024 20:14:31 Activiti es of Daily Living Performs activities of daily living independently or with minimal assistance Progressing active 2023 Eliz Zapata CCM Information not available 02/14/2024 20:14:34 Family and Social Support Reports family and/or social support needs are met NoChange active 2023 Eliz Zapata CCM Information not available 01/07/2024 16:10:20 Home/Env ironment Safety Reports having a safe environment that promotes independence and prevents injury NoChange active 2023 Eliz Zapata CCM Information not available 01/07/2024 16:10:20 Follow-u p Appointm ent(s) Attends referral and/or follow-up appointment(s) as per care team recommendation (s) NoChange active 2023 Eliz Zapata CCM Information not available 01/07/2024 16:10:20 Effectiv e Coping Manages life events with effective coping methods active 2023 Eliz Zapata CCM Information not available 01/07/2024 16:10:20 Diet Adherenc e Follows prescribed or recommended diet NoChange active 2023 Eliz Zapata CCM Information not available 01/07/2024 16:10:20 Knowledg e of Disease or Conditio n Demonstrates understanding of disease(s) or condition(s) NoChange active 2023 Eliz Zapata CCM Information not available 01/07/2024 16:10:20 Self-Adv ocacy Advocates effectively for self by communicating desires, feelings and concerns to care team Progressing active 2023 Eliz Zapata CCM Information not available 02/14/2024 20:14:41 Lipid Levels Maintains normal lipid levels as defined by care team NoChange active 2023 Eliz Zapata CCM Information not available 01/07/2024 16:10:20 Effectiv e Pain Manageme nt Reports or exhibits adequate pain relief as determined by appropriate pain scale NoChange active 2023 Eliz Zapata CCM Information not available 01/07/2024 16:10:20 Balance Maintains or improves baseline balance NoChange active 2023 Eliz Zapata CCM Information not available 01/07/2024 16:10:20 Pain Manageme nt Plan Reports satisfaction with current pain management plan (e.g., medication and non-medication pain relief interventions) [facility] Eliz Zapata CCM Information not available 01/07/2024 16:10:20 Weight Gus nce Exhibits stable weight with normal fluctuation NoChange active 2023 Eliz Zapata CCM Information not available 01/07/2024 16:10:21 Active Range of Motion Demonstrates normal or improved active range of motion as defined by care team Progressing active 2023 Eliz Zapata CCM Information not available 02/14/2024 20:14:50 Blood Pressure Maintains blood pressure goal as defined by care team NoCjackyge active 2023 Eliz Zapata CCM Information not available 01/07/2024 16:10:21 Healthy Weight Maintain a healthy body weight as recommended by your care [facility] Eliz Zapata CCM Information not available 01/07/2024 16:10:21 Recreati onal Activiti es Participates in recreational activities [facility] 2023 Eliz Zapata CCM Information not available 01/07/2024 16:10:21 Fall Safety Reports no recent falls and/or fall injuries Progressing active 2023 Eliz Zapata CCM Information not available 02/14/2024 20:14:57 Strength and Conditio nato Achieves improved strength and conditioning as defined by care team Progressing active 2023 Eliz Zapata CCM Information not available 02/14/2024 20:15:00 Substanc e Cessatio n Reduces or avoids [facility] Eliz Zapata CCM Information not available 01/07/2024 16:10:22 Assistiv e/Adapti ve Devices Uses assistive/adap tive devices properly and safely as per care team recommendation (s) [facility] Eliz Zapata CCM Information not available 01/07/2024 16:10:22 Health Concerns Section Related Observation LastModified by Organization Detai ls LastModified Time None Recorded Concern Status LastModified by Organization Details LastModified Time Hypercholesterolemia Active Eliz Zapata CCM Not Avail able 01/07/2024 16:05:49 Chronic low back pain Active Eliz Zapata CCM Not Avai lable 01/07/2024 16:05:23 Osteoarthritis Active Eliz Zapata CCM Not Available 0 01/07/2024 16:09:39 Essential hypertension Active Eliz Zapata CCM Not Denise ilable 01/07/2024 16:06:01 Advance Directives Directive Y: Payers Encounter Date Sequence Insurance Name Policy Number Policy Garcia Covered Member ID Garcia Member ID Guarantor Name 01/07/2024 1 [place] Carolynn A Mily [id number] Carolynn A Mily 01/07/2024 2 [employer] (MEDICARE SUPPLEMENT) [id number] Carolynn A Mily [id number] Carolynn A Mily 01/24/2024 1 [place] Carolynn A Mily [id number] Carolynn A Mily 01/24/2024 2 [employer] (MEDICARE SUPPLEMENT) [id number] Carolynn A Mily [id number] Carolynn A Mily 02/14/2024 1 [place] Carolynn A Mily [id number] Carolynn A Mily 02/14/2024 2 [employer] (MEDICARE SUPPLEMENT) [id number] Carolynn A Mily [id number] Carolynn A Mily 03/17/2024 1 [place] Carolynn A Mily [id number] Carolynn A Mily 03/17/2024 2 [employer] (MEDICARE SUPPLEMENT) [id number] Carolynn A Mily [id number] Carolynn A Mily 05/29/2024 1 [place] Carolynn A Mily [id number] Carolynn A Mily 05/29/2024 2 [employer] (MEDICARE SUPPLEMENT) [id number] Carolynn A Mily [id number] Carolynn A Mily Notes Date Note Type Note Provider Name and Address Organization Details Recorded Time 01/24/2024 text/html Patient Name: Josie MinorDate Of Service: Wednesday ( 01.24.2024 ): 1950 Age: 73 There has been approximately a 1.5 lb weight gain since 09/27/2023. This represents approximately a .9% change in weight. Weight change attributable to lifestyle changes. Vital Signs:Blood Pressure: Sitting Rt. Arm 116/70Pulse: Sitting 72 /min and RegularRespiratory Rate: 16Height 64 in or 1.6 mWeight 164 lb or 74.4 kgBMI 28.1Temperature: 97.2 F or 36.2 CPulse Oximetry: 98 % at rest on no oxygen Chief Complaint: Addressed in HPI Problems or conditions discussed in the HPI were the only ones reviewed during the encounter.Only social and family history addressed in the HPI were reviewed during this encounter. Attendant(s): NoneConstitutional and Systemic Symptoms:none Medication Reconciliation: from medication list. Qcwjyuyattq64/20/2023: MRCP of the abdomen demonstrates some ductal dilatation what appears to be a distal calculus in the common duct. No definable mass is noted. Some atrophy of the pancreas is noted. History of Present Illness #1. Essential Hypertension: Stage: Stage I Interval Neurological Complaints no headaches, dizziness, weakness, visual changes, ataxia, aphasia and apraxia. No shortness of breath, orthopnea or cardiovascular symptoms. No other symptoms related to end organ damage. Pressure has been under excellent control. Currently normal. No other end organ symptoms or findings. Therapy reviewed regarding management of hypertension and includes salt restriction and Furosemide and Lisinopril. #2. Type II Hypercholesterolaemia: Currently taking medication and tolerating well. No interval complaints of any muscle pain or arthralgia. No significant liver changes with medications. Last lipid panel: fair control. Therapy reviewed regarding treatment of cholesterol management and include diet and Atorvastatin Calcium. #3. Hx of Peripheral venous insufficiency clinically stable. Does take furosemide 20 mg once daily for this. #4. osteoporosis. No new complaints of any additional back,hip or other musculoskeletal complaints related to the osteoporosis. No hx of any recent trauma. Currently taking OsCal-D and Fosamax. Has has had a recent DEXA scan done within the last year. The FRAX Score for Hip Fracture is NA hx osteoporosis FRAX score for major fractures NA hx of osteoporosis Active Medication ListNorco 325 MG-10 MG (TABLET - ORAL) One Four Times A DayCentrum Silver DailyOs-bong D 600 Mg DailyOmeprazole 20 MG (CAPSULE, DELAYED REL PELLETS - ORAL) One DailyFurosemide 20 MG (TABLET - ORAL) One DailyAtorvastatin Calcium 20 MG TABLET One DailyGabapentin 600 MG (TABLET - ORAL) One HsMeloxicam 7.5 MG (TABLET - ORAL) One DailyMelatonin 10 MG One At BedtimeLisinopril 5 MG TABLET QdFosamax 70 MG TABLET Weekly Adverse Drug Reactions ReviewedTape RashSulfa Drugs Hives Vaccination and Ibkauveaaiyp8855-89 Dgspafqzb7102-20 Covid Booster Qjratcj4640-46 Covid Hotplxq5001-59 Xzfsarrhr9436-20 Prevnar 13 Gc Surgical Tltxwtt7262-43 ERCP Biliary Stent Wjoenwn2733-53 Left TIR5527-58 Gluteus Uojefex5317-27 Left Partial Mfa8846-66 Bilateral Svsbqsaxt9658-86 Lumbar Laminectomy L4-L5 with RATX4978-42 Gastric Cwxsre4454-30 Lpefgkxfumuokyt7359-97 [facility] BSO Preventative Wwirkol6309/29/2023 MAMMOGRAM 5009/28/2023 ALBUMIN 3.3 G/DL03/17/2022 DEXA SCAN10/30/2020 HAIC 5.0 % N004/05/2020 MICRO ALBUMIN 8.0 MG/L N008/29/2014 COLONOSCOPY (10 YEARS) 08/29/2024 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 [employer] 01/24/2024 15:05:45 05/29/2024 text/html Patient Name: Josie Wayne EppersonDate Of Service: Wednesday ( 05.29.2024 ): 1950 Age: 73 There has been approximately a 3 lb weight gain since 01/24/2024. This represents approximately a 1.8% change in weight. Weight change attributable to lifestyle changes. Vital Signs:Blood Pressure: Sitting Rt. Arm 120/72Pulse: Sitting 83 /min and RegularRespiratory Rate: 16Height 64 in or 1.6 mWeight 167 lb or 75.7 kgBMI 28.7Temperature: 97 F or 36.1 CPulse Oximetry: 97 % at rest on no oxygen Chief Complaint: Addressed in HPI Problems or conditions discussed in the HPI were the only ones reviewed during the encounter.Only social and family history addressed in the HPI were reviewed during this encounter. Attendant(s): NoneConstitutional and Systemic Symptoms:none Medication Reconciliation: from medication list. Fnbwrdhifjm66/20/2023: MRCP of the abdomen demonstrates some ductal dilatation what appears to be a distal calculus in the common duct. No definable mass is noted. Some atrophy of the pancreas is noted. 03-02-2024: echocardiogram estimated ejection fraction 60% with no evidence of any significant valvular abnormalities. History of Present Illness #1. Essential Hypertension: Stage: Stage I Interval Neurological Complaints no headaches, dizziness, weakness, visual changes, ataxia, aphasia and apraxia. No shortness of breath, orthopnea or cardiovascular symptoms. No other symptoms related to end organ damage. Pressure has been under excellent control. Currently normal. No other end organ symptoms or findings. Therapy reviewed regarding management of hypertension and includes salt restriction and Lisinopril. #2. Type II Hypercholesterolaemia: Currently taking medication and tolerating well. No interval complaints of any muscle pain or arthralgia. No significant liver changes with medications. Last lipid panel: excellent control. Therapy reviewed regarding treatment of cholesterol management and include diet and Atorvastatin Calcium. #3. Hx of esophageal reflux currently stable. Hx of Complications: improved The severity, duration and intensity of symptoms have most meals. Frequency: intermittent Treatment consists medications taken on Omeprazole. Current therapy includes no nausea. There has been no. No change in he frequency or intensity of symptoms. Has had no melena. Has had NA . Discussed use of H2 antagonists lumbar, knees, hips and generalized joint pain. #4. Chronic pain management for chronic no significant change since last examination Since last examination none Interval Testing: partial relief requiring additional medicationHas tried NSAIDS constant, exacerbated by activity and interferes with enjoyment and ability to perform activities of daily living. Pain Description: Yes. Currently seeing or has seen in the past a Promotional Model: 5 .Pain - Enjoyment of Life - General Activity ScalePain on Average: 4Enjoyment of Live: 5General Activity: 5Enjoyment of Life - General Activity Scale: NorcoCurrently regimen consists of 40 as prescribed with no evidence of abuse or self prescribing. Current Average Morphine Milligram Approximate Equivalent: NA mg approximated if taking full dosage daily. Recommend: no.Benzodiazepines or other hypnotics: kept medications the same.Alternative pain management modalities (acupuncture - behavior therapy- additional PT - SNRIs) have been discussed and have either been tried in the past or not acceptable alternatives to patient or not available in our location.Will not indicated and this time.Urine Testing: yes and no discrepancies or multiple prescribers noted.Controlled substance database yes and no discrepancies or multiple prescribers noted. Pill counts when available have been acceptable. No other signs of any abuse.Patient reports condition is stable and is able to function with the medication. Denies any misuse or adverse effects.TREATMENT OBJECTIVE: Enhance ability to manage pain independently, improved function and sustain quality of life. Recommendations or alternative therapies and lifestyle changes are discussed on each visit. Has shown improvement inf functionality. Has been educated on the side effects,risks and any black box warnings. Has verbalized the dangers of some of the medications regarding driving and cooperating heavy machinery and have advised against this. Active Medication ListNorco 325 MG-10 MG (TABLET - ORAL) One Four Times A DayCentrum Silver DailyOs-bong D 600 Mg DailyOmeprazole 20 MG (CAPSULE, DELAYED REL PELLETS - ORAL) One DailyFurosemide 20 MG (TABLET - ORAL) One DailyAtorvastatin Calcium 20 MG TABLET One DailyGabapentin 600 MG (TABLET - ORAL) One HsMeloxicam 7.5 MG (TABLET - ORAL) One DailyMelatonin 10 MG One At BedtimeLisinopril 5 MG TABLET QdFosamax 70 MG TABLET Weekly Adverse Drug Reactions ReviewedTape RashSulfa Drugs Hives Vaccination and Immunization( ) 2024-05 SHINGRIX( ) 2014-09 PREVNAR 13 GC( ) 2019-03 PNEUMOVAX( ) 2020-10 COVID MODERNA(X) 2021-06 COVID BOOSTER MODERNA( ) 2024-05 INFLUENZA( ) 2024-05 PREVNAR 20 Surgical Kziskxr3306-86 ERCP Biliary Stent Goiowjd0328-23 Left KJQ3125-73 Gluteus Klbkain0089-29 Left Partial Nrp3355-05 Bilateral Eucbkbwga6186-69 Lumbar Laminectomy L4-L5 with TSYG5437-59 Gastric Oslrbv6504-02 Qxueyqhajndjizy7853-06 [facility]SO Preventative Testing( ) 02/08/2024 DEXA Scan 02/07/2026( ) 09/29/2023 Mammogram 09/29/2025( ) 09/28/2023 Albumin 3.3 G/DL( ) 10/30/2020 HAIC 5.0 % N( ) 04/05/2020 Micro Albumin 8.0 MG/L N( ) 08/29/2014 Colonoscopy (10 Years) 08/29/2024 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 Family HistoryMother 89 from metastatic CA BreastFather unknownOne sister living and in good healthMenarche 12 Menopause 43 A0 Active Medication ListNorco 325 MG-10 MG (TABLET - ORAL) One Four Times A DayCentrum Silver DailyOs-bong D 600 Mg DailyOmeprazole 20 MG (CAPSULE, DELAYED REL PELLETS - ORAL) One DailyFurosemide 20 MG (TABLET - ORAL) One DailyAtorvastatin Calcium 20 MG TABLET One DailyGabapentin 600 MG (TABLET - ORAL) One HsMeloxicam 7.5 MG (TABLET - ORAL) One DailyMelatonin 10 MG One At BedtimeLisinopril 5 MG TABLET QdFosamax 70 MG TABLET Weekly Adverse Drug Reactions ReviewedTape RashSulfa Drugs Hives Vaccination and Immunization( ) 2024-05 SHINGRIX( ) 2014-09 PREVNAR 13 GC( ) 2019-03 PNEUMOVAX( ) 2020-10 COVID MODERNA(X) 2021-06 COVID BOOSTER MODERNA( ) 2024-05 INFLUENZA( ) 2024-05 PREVNAR 20 Surgical Cbulonf2186-01 ERCP Biliary Stent Qkiqnet2944-17 Left MFE2250-81 Gluteus Upyjgee4175-20 Left Partial Gqy0645-17 Bilateral Nohqhfyuv9809-54 Lumbar Laminectomy L4-L5 with ROQG5395-14 Gastric Zgszjc1712-76 Vyuacoduhdvrmuu0143-15 [facility] BSO Preventative Testing( ) 02/08/2024 DEXA Scan 02/07/2026( ) 09/29/2023 Mammogram 09/29/2025( ) 09/28/2023 Albumin 3.3 G/DL( ) 10/30/2020 HAIC 5.0 % N( ) 04/05/2020 Micro Albumin 8.0 MG/L N( ) 08/29/2014 Colonoscopy (10 Years) 08/29/2024 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 Family HistoryMother 89 from metastatic CA BreastFather unknownOne sister living and in good healthMenarche 12 Menopause 43 A0 TEST RESULT RANGE UNITSLIPID PANEL Date: 09/28/2023HOLESTEROL 162 140-199 MG/DLTRIGLYCERIDES 125 0-150 MG/DLHDL CHOLESTEROL 49 40- MG/DLLDL CHOLESTEROL, CALCULATED 88 0-130 MG/DLTSH Date: 09/28/2023THYROID-STIMU LATING HORMONE 0.248 0.465-4.680 UIU/MLT4 FREE Date: 09/28/2023FREE T4 0.95 0.78-2.19 NG/DLCA 19-9 Date: 3CA 19-9 78 0-35 U/ML Morgan Goodson MD [address] [facility], [facility] [address], [place], [address], [place] [facility] 05/29/2024 14:54:23 OBGyn Episode No OBEpisode recorded.
--- OUTSIDE RECORDS SUMMARY | 2024-10-26 14:38 | XMS_ITS ---
Author Organization [facility] Address [address] [place] [address] Care Team Providers Care Loader Technician Name Role Phone Rodolfo Goodson md Primary Care Provider Linda MEDINA TIER LIFT TRUCK OPERATOR, ALLYSSA Unavailable [phone] Gerardo Reynolds Unavailable Unavailable ALLERGIES Allergen (clinical drug ingredient) Drug/Non Drug Allergy documented on EMR Reaction Allergy Type Onset Date Status Adhesive Unknown Allergy Active Substance with sulfonamide structure and antibacterial mechanism of action (substance) Sulfa Antibiotics rash Drug Allergy Active REASON FOR VISIT G Tube removal MEDICATIONS Medication SIG (Take, Route, Frequency, Duration) Notes Start Date End Date Status Centrum Active Fosamax 20mg PRN Active Meloxicam 7.5 MG 1 tablet Orally Once a day Active Stool Softener 250 MG 1 capsule as neede d Orally Once a day Active Omeprazole 20 MG 1 capsule 30 minutes before morning meal Orally Once a day Active Biotin Active Slow Magnesium/Calcium Active HYDROcodone-Acetaminophen 10-325 MG 1 tablet as needed Orally every 6 hrs Active Melatonin Active AZO Cranberry Active Atorvastatin Calcium 20 MG 1 tablet Oral ly Once a day Active Gabapentin 600 MG 1 tablet Orally Once a day Active Vitamin B12 Active VITAL SIGNS Blood pressure systolic 128 mm Hg 05/17/20 23 Blood pressure diastolic 86 mm Hg 023 Heart Rate 78 /min 05/17/2023 Height 64 in 05/17/2023 Weight 155 lbs 05/17/2023 BMI 26.6 kg/m2 05/17/2023 Encounters Encounter Location Date Provider Diagnosis [facility] [address] [place] [address] 05/17/2023 ALLYSSA MEDINA Bariatric surgery status Z98.84 and Right upper quadrant pain R10.11 ASSESSMENTS Encounter Date Diagnosis Assessment Notes Treatment Notes Treatment Clinical Notes Section Notes 05/17/2023 Bariatric surgery status (ICD-10 - Z98.84) G tube was removed with no complications. Skin was clean, dry and intact. very mild irritation noted due to tape. New dressing was applied and calmoseptic cream given 05/17/2023 Right upper quadrant pain (ICD-10 - R10.11) resolved post ERCP educated on importance of low fat diet 05/17/2023 Other Time spent: 10 minutes. More than 50% spent reviewing diagnostic results, compliance with current medical therapy, counseling patient on low fat diet, weight reduction to normal BMI, normal BMI discussed, avoidance of ETOH/tobacco products, discussing treatment options. Instructed patient regarding management plan, follow-up visits, and stressed importance of compliance with plan. PLAN OF TREATMENT Treatment Notes Assessment Notes Bariatric surgery status G tube was keith roly with no complications. Skin was clean, dry and intact. very mild irritation noted due to tape. New dressing was applied and calmoseptic cream given Right upper quadrant pain resolved post ERCP educated on importance of low fat diet Other Time spent: 10 minut es. More than 50% spent reviewing diagnostic results, compliance with current medical therapy, counseling patient on low fat diet, weight reduction to normal BMI, normal BMI discussed, avoidance of ETOH/tobacco products, discussing treatment options. Instructed patient regarding management plan, follow-up visits, and stressed importance of compliance with plan. Next Appt Details Follow Up: prn, Reason: Progress Notes * Josie VICKyce ADOB: [birth year] (72 yo F)Acc No.[id number]:05/17/2023 Progress Notes Patient: Carolynn Vick Appointment Provider: Allyssa Medina CNP :1950 Age:72 Y Sex:Female Date:05/17/2023 Address:[facility] Pcp:Rodolfo Goodson md Subjective: * Chief Complaints: * 1. G Tube removal. * HPI: Constitutional: Pleasant 72 year old [...] that is needing downsizing at this time. - UPDATE 05/17/23 Blayne duong presents today for removal of her G tube. She has been doing great with no GI complaints. * ROS: Gastrointestinal: Denies Abdominal pain. Denies [...] History: Tobacco Use: Do you smoke?: Never. * Medications: Taking Biotin , Taking Slow [...] tablet as needed Orally every 6 hrs * Allergies: Adhesive, Sulfa Antibiotics: rash. Objective: * Vitals: HR:78/min, BP:128/86mm Hg, Wt:155lbs, BMI:26.6Index, Ht: 64 in, Ht-cm: 162.56 cm, Wt-k.31 kg. * Examination: General Examination: GENERAL APPEARANCE: in no acute distress, well developed, well nourished. HEART: no murmurs, regular rate and rhythm, S1, S2 normal. LUNGS: clear to auscultation bilaterally. ABDOMEN: normal, bowel sounds present, soft, nontender, nondistended, G tube present with clean dry dressing in place. NEUROLOGIC: alert and oriented, sensory exam intact. Assessment: * Assessment: 1. Bariatric surgery status - Z98.84 (Primary) 2. Right upper quadrant pain - R10.11 Plan: * Treatment: 2. Right upper quadrant pain Notes: resolved post ERCP educated on importance of low fat diet. 3. Others Notes: Time spent: 10 minutes. More than 50% spent reviewing diagnostic results, compliance with current medical therapy, counseling patient on low fat diet, weight reduction to normal BMI, normal BMI discussed, avoidance of ETOH/tobacco products, discussing treatment options. Instructed patient regarding management plan, follow-up visits, and stressed importance of compliance with plan. * Follow Up: prn * Images: * Sign off status: Completed true * Appointment Provider: Allyssa Medina CNP Date: 05/17/2023 History and Physical Notes * HPI (History of Present Illness) Category Sub-Category Detail Notes Category Not es Constitutional Pleasant 72 year old female with history [...] that is needing downsizing at this time. UPDATE 05/17/23 Carolynn presents today for removal of her G tube. She has been doing great with no GI complaints. Examination Category Sub-Category Detail Notes Category Not es General Examination GENERAL APPEARANCE: in no ac terrie distress, well developed, well nourished HEART: no murmurs, regular rate and rhythm, S1, S2 normal LUNGS: clear to auscultatio n bilaterally ABDOMEN: normal, bowel sounds present, soft, nontender, nondistended, G tube present with clean dry dressing in place NEUROLOGIC: alert and oriented, sensory exam intact
== END 2024-10-26 13:20 | disposition home or self-care (01) ==
PROVIDERS: PCP Internal Medicine; Visit Provider Urology
DX: N20.0 Calculus of kidney (principal); Z90.710 Acquired absence of both cervix and uterus; Z98.84 Bariatric surgery status; Z98.890 Other specified postprocedural states
CPT/HCPCS: 74018